=== PATIENT | male | born 1970 | race Caucasian/White ===

== ENCOUNTER 2023-05-06 11:01 | Outpatient (CLI) | payer BC, SELFPAY ==
[2023-05-06 11:16] LABS: Basophils Absolute Auto 0.1 K/mm3 (0.0-0.1); Basophils Percent Auto 0.5 % (0.2-1.2); Eosinophils Absolute Auto 0.2 K/mm3 (0-0.3); Eosinophils Percent Auto 1.7 % (0-4.4); Hematocrit 52.8 % (42.0-52.0); Hemoglobin 18.1 g/dL (14.0-18.0); Immature Granulocyte Absolute 0.03 K/mm3 (0.00-0.031); Immature Granulocyte Percent A 0.3 % (0-0.5); Lymphocytes Absolute Auto 2.14 K/mm3 (0.9-3.2); Lymphocytes Percent Auto 20.3 % (18.3-44.2); Mean Corpuscular HGB Conc 34.3 g/dl (32-36); Mean Corpuscular Hemoglobin 31.1 pg (26-34); Mean Corpuscular Volume 90.7 fl (80-100); Mean Platelet Volume 10.7 fl (7.4-10.4); Monocytes Absolute Auto 0.6 K/mm3 (0.1-0.6); Monocytes Percent Auto 5.2 % (2.6-8.5); Neutrophils Absolute Auto 7.6 K/mm3 (1.3-6.7); Platelet Count Result 196 k/mm3 (150-375); Red Blood Count 5.82 M/mm3 (4.6-6.20); Red Cell Distribution Width 13.2 % (11.5-14.5); White Blood Count 10.5 K/mm3 (4.5-10.0)
[2023-05-06 16:40] LABS: Alanine Aminotransferase 53 U/L (6-50); Albumin Level 4.4 g/dL (3.5-5.1); Alkaline Phosphatase 83 U/L (38-126); Anion Gap 6 mmol/L (8-16); Aspartate Amino Transferase 42 U/L (17-59); Bilirubin,Total 0.9 mg/dL (0.2-1.3); Blood Urea Nitrogen 54 mg/dL (9-20); Calcium 9.4 mg/dL (8.4-10.2); Carbon Dioxide 28 mmol/L (22-30); Chloride 104 mmol/L (98-107); Estimated Glomerular Filt Rate 38; Glucose 115 mg/dL (65-110); Potassium 5.8 mmol/L (3.4-5.0); Sodium 138 mmol/L (137-145)
[2023-05-09 13:28] LABS: Erythropoietin (EPO) 11.1 mIU/mL (2.6-18.5)
== END 2023-05-06 11:02 | disposition home or self-care (01) ==
LOC: ANHLAB 11:06
PROVIDERS: PCP Nurse Practitioner Family; Visit Provider Internal Medicine Hematology & Oncology
DX: D75.1 Secondary polycythemia (principal)
CPT/HCPCS: 36415; 80053; 82668; 85025

== ENCOUNTER 2025-05-02 08:43 | Outpatient (CLI) | payer BC, SELFPAY ==
--- NOTE | ~2025-05-02 | MR_ITS ---
MRI of the right shoulder Technique: Axial proton-density fat-sat images, coronal proton density fat-sat and T2 fat-sat images, and sagittal T1-weighted and T2 fat-sat images were acquired. Clinical History: Pain Findings: There is [id number] AC joint degenerative change with small subacromial spur. Coracoc lavicular, coracoacromial, and coracohumeral ligaments are intact. There is evidence of prior rotator cuff repair surgery with suture anchors at the humeral head. There is extensive recurrent full-thickness tearing of the anterior and mid portions of the supraspinatus tendon. There is interstitial tear of the posterior portion of the supraspinatus tendon. Infraspinatu s tendon appears intact. Subscapularis tendon appears intact. Probable prior biceps tenodesis. There is degenerative attenuation of the superior labrum. Inferior glenohumeral ligament is intact. There is moderate glenohumeral joint effusion with fluid pa ssing through the rotator cuff defect into the subacromial/subdeltoid bursa. No definite muscle atrop hy or edema. No degenerative change of the glenohumeral joint. Impression: Prior rotator cuff repair surgery with extensive recurrent full-thickness tearing of the supraspinatu s tendon, as detailed above. Probable prior biceps tenodesis. [id number] AC joint degenerative change. Reviewed, dictated and finalized at [facility]. Impression: Prior rotator cuff repair surgery with extensive recurrent full-thickness teari ng of the supraspinatus tendon, as detailed above. Probable prior biceps tenodesis. [id number] AC joint degenerative change.
--- OUTSIDE RECORDS SUMMARY | 2025-05-02 08:48 | XMS_ITS | Clinical Summary ---
Author Organization [facility] Address [address] [place] [address] Phone Care Team Providers Care Bias Cutter Name Role Phone Harshal Grissom MD Primary Care Provider [phone] Allergies No known active allergies Medications metFORMIN (GLUCOPHAGE) 500 mg tablet Take 500 mg by mouth 2 times daily with meals. Active empagliflozin (Jardiance) 10 mg tablet Jardiance 10 mg tablet Take 1 tablet every day by oral route for 30 days. Active lisinopriL (PRINIVIL) 20 mg tablet lisinopril 20 mg tablet Take 1 tablet every day by oral route. Active carvediloL (COREG) 12.5 mg tablet Take 1 Tablet by mouth 2 times daily. 2 Active clopidogreL (PLAVIX) 75 mg Tablet clopidogrel 75 mg tablet Take 1 tablet every day by oral route. Active chlorthalidone (HYGROTON) 25 mg tablet TAKE ONE-HALF (1/2) TABLET ONCE DAILY 3 Active allopurinoL (ZYLOPRIM) 100 mg tablet TAKE 2 TABLETS EVERY MORNING 3 Active atorvastatin (LIPITOR) 40 mg tablet Take 40 mg by mouth daily. Active Active Problems No known active problems Family History Medical History Relation Name Comments Diabetes Father Skin Cancer Father Diabetes Mother Heart Disease Mother Relation Name Status Comments Brother Alive Father Alive Mother Son Alive Social History Tobacco Use Types Packs/Day Years Used Date Smoking Tobacco: Never Tobacco Cessation:Counseling Given: Not Answered Alcohol Use Standard Drinks/Week Comments Yes 0 (1 standard drink = 0.6 oz pur e alcohol) social Sex and Gender Information Value Date Recorded Sex Assigned at Not on file Legal Sex Male 8:39 PM CDT Gender Identity Not on file Sexual Orientation Not on file Last Filed Vital Signs Vital Sign Reading Time Taken Comments Blood Pressure 141/78 05/06/2023 10:23 AM CDT Pulse 61 05/06/2023 10:21 AM CDT Temperature 36.4 C (97.6 F) 04/06/2014 8:46 PM CDT Respiratory Rate 10 05/06/2023 10:21 AM CDT Oxygen Saturation 95% 05/06/2023 10:21 AM CDT Inhaled Oxygen Concentration - - Weight 96.6 kg (213 lb) 05/06/2023 10:21 AM CDT Height 170.2 cm (5' 7) 05/06/2023 10:21 AM CDT Body Mass Index 33.36 05/06/2023 10:21 AM CDT Plan of Treatment Health Maintenance Due Date Last Done Comments DIABETES ANNUAL FOOT EXAM 1990 DIABETES ANNUAL RETINAL EXAM 1990 DIABETES HBA1C Q 6 MONTHS 1990 DIABETES MICROALBUMIN ANNUAL SCREEN 1990 LDL CHOLESTEROL ANNUAL 1990 HEPATITIS B VACCINES (1 of 3 - 19+ 3-dose series) 1991 COLORECTAL SCREENING 2017 Colorectal Cancer Screening 2017 FIT-DNA Q 3 years 2017 FIT/FOBT Q 1 year 2017 Flex Sig/CT Colonography Q 5 years 2017 ZOSTER VACCINE (1 of 2) 2022 INFLUENZA VACCINE (#1) 2024 , 10/26/2019, 02/11/2019 DTAP/TDAP/TD VACCINES (4 - T d or Tdap) 12/06/2027 12/06/2017, 04/09/2014, 04/09/2014 Insurance [facility] BLUE ACCESS CHOICE Care Teams Bias Cutter Relationship Specialty Start Date End Date Harshal Grissom MD PCP - General 11/11/15
--- OUTSIDE RECORDS SUMMARY | 2025-05-02 08:48 | XMS_ITS | Patient Health Record ---
Author Organization [facility] Address [address] [place] [address] Support Name Relationship Address Phone Luis Daniel Francis Guarantor Unknown [phone] Reason For Referral No Information Medications Medication SIG (Take, Route, Frequency, Duration) Notes Start Date End Date Status Medrol 4 MG 0 Oral TAKE DIRECTED ON PATIENT INSTRUCTION CARD. START IN AM ON 04/24/2014.-Med Status:Filled Rx, DrugStatus-Y,[place]-Rx By-Zuleyma Khanna 04/23/2014 Active Ibuprofen 800 MG 0 Oral Take 1 tablet t hree times daily as needed for pain.-Med Status:Filled Rx, DrugStatus-N,[place]-Rx By-Zuleyma Khanna 04/23/2014 Active Lisinopril 10 MG 0 Oral -Med Status:Zach led Rx, DrugStatus-N,[place]-Rx By- , 04/23/2014 Active metFORMIN HCl 500 MG 0 Oral -Med Status:Filled Rx, DrugStatus-N,[place]-Rx By- , 04/23/2014 Active Problems Problem Type SNOMED Code ICD Code Onset Dates Problem Status W/U Status Risk Notes Problem Meningococcal infectious disease (disorder) (72886836) Meningococcal () 014 Active confirmed [place] Problem Arthralgia of the upper arm (623099676) Pain in right elbow (M25.521) 017 Active confirmed [place] Problem Bursitis of olecranon of right elbow (disorder) (908134456231721) Other bursitis of elbow, right elbow (M70.31) 014 Active confirmed [place] Problem Adult health examination (399340653) Encounter for general adult medical examination without abnormal findings (Z00.00) 900 Active confirmed [place] Problem Family history of diabetes mellitus (290515880) Family history of diabetes mellitus (Z83.3) 014 Active confirmed [place] Problem History of endocrine disorder (434766655) Personal history of other endocrine, nutritional and metabolic disease (Z86.39) Resolved confirmed [place] Problem History of circulatory system disease (587597122) Personal history of other diseases of the circulatory system (Z86.79) 014 Resolved confirmed [place] Problem History of musculoskeletal disease (508737448) Personal history of other diseases of the musculoskeletal system and connective tissue (Z87.39) 014 Resolved confirmed [place] Problem History of urinary disease (482508896) Personal history of other diseases of urinary system (Z87.448) 014 Resolved confirmed [place] Plan Of Treatment No Information Insurance Providers Payer Name Payer Address Payer Phone Subscriber Number Group Number Insured Name Patient Relationship to Insured Coverage Start Date Coverage End Date [place] [employer] [place] [address] [place] [phone] [id number] Luis Daniel Francis Self - patient is the insured
--- OUTSIDE RECORDS SUMMARY | 2025-05-02 08:48 | XMS_ITS | Data Portability ---
Author Organization [facility] MEDICAL Address [address] [place] [address] Assessment No assessment recorded. Plan of Treatment Reminders Order Date Submit Date Provider Last Modified By Organization Details Last Modified Time Details Appointments None recorded. Lab vitamin B12, serum 2017 018 [facility], [address] [place], [address], 8 10:45:56 microalbum in/creatin ine, mass ratio, urine 2017 018 [facility], [address] [place], [address], 8 10:31:29 CBC w/ auto diff 2017 018 [facility], [address] [place], [address], 8 10:31:29 CMP, serum or plasma 2017 018 [facility], [address] [place], [address], 8 10:31:29 lipid panel, serum 2017 018 [facility], [address] [place], [address], 8 10:31:29 TSH, serum or plasma 2017 018 [employer] [employer] - [facility], [address] [place], [address], 8 10:31:29 HbA1c (hemoglobi n A1c), blood 2017 018 [employer] [facility], [address] [place], [address], 8 10:31:29 Referral sleep study referral 2017 018 [facility] [place], [facility], [address], 8 16:30:28 Procedures None recorded. Surgeries None recorded. Imaging None recorded. Medication Orders lisinopril 20 mg tablet 2017 018 INTERFACE [facility] / [place], [address] [place], [address], 8 13:22:30 pravastati n 20 mg tablet 2017 [facility] [place], [address] [place], [address], 8 10:35:37 gabapentin 300 mg capsule 2017 018 INTERFACE [facility] [place], [address] [place], [address], 8 13:22:31 Patient TargetsNo targets recorded. Patient Instructions Encounter Date Encounter Id Patient Instructions Last Modified By Organization Details Last Modified Time 12/06/2017 [id number] high blood pressure: care instructions aendrizzi Not available 12/06/2017 13:22:28 learning about high blood pressure aendrizzi Not available 12/06/2017 13:22:28 high cholesterol : care instructions aendrizzi Not available 12/06/2017 13:22:28 neuropathic pain : care instructions [email or web address] Not available 12/06/2017 13:22:28 Keep seeing cardio f2poyvtl. myke Not available 12/06/2017 13:20:23 3 month RV. He has been out of his BP medication. Come back for blood (LIPID, CBC, CMP, TSH, A1C, Urine micro). myke Not available 12/06/2017 13:17:48 01/07/[id number] stringer Not available 14:44:01 He has not been taking his BP medication. [email or web address] Not available 01/07/2018 14:43:16 Reason for Referral Referring Physician: Alissa Molina, Family Medicine, Encounter Date: 01/07/2018 Results Created Date Observation Date Name Description Value Unit Range Abnormal Flag Note LastModifiedBy Organization Detail LastModifiedTime 12/19/19 18 12/20/2017 lipid panel , serum cholesterol, total 220 mg/dL <200 high Not Available Patient Communicator [facility] [address] [place], [address], 12/20/2017 09:00:37 12/19/19 18 12/20/2017 lipid panel , serum HDL cholesterol 38 mg/dL >40 low Not Available [facility] YumZing [facility] [address] [place], [address], 12/20/2017 09:00:37 12/19/19 18 12/20/2017 lipid panel , serum triglyceride s 241 mg/dL <150 high Not Available Patient Communicator [facility] [address] [place], [address], 12/20/2017 09:00:37 12/19/19 18 12/20/2017 lipid panel , serum LDL-choleste rol 143 mg/dL _(magno c) high Refer ence range : <100 Carri able range <100 mg/dL for patie nts with CHD or diabe agus and <70 mg/dL for diabe tic patie nts with known heart disea se. LDL-C is now calcu lated using the Anne [facility] kins tre caba n, which is a valid ated novel juany fregoso than the Fried ruben kaylanat ion in the estim ation of LDL-C . Anne rodriguez SS et al. JAJA. 2013; 310(1 9): 2061- 2068 (http ://ed ucati on.AntFarm. com/f aq/FA Q164) Not Available [facility] [address] [address] [place], [address], 12/20/2017 09:00:37 12/19/19 18 12/20/2017 lipid panel , serum chol/HDLC ratio 5.8 (calc ) <5.0 high Not Available [facility] [address] [address] [address], [place], [address], 12/20/2017 09:00:37 12/19/1912/20/2017 lipid panel , serum non HDL cholesterol 182 mg/dL _(magno c) <130 high For patie nts with diabe agus plus 1 major ASCVD risk facto r, treat ing to a non-H DL-C goal of <100 mg/dL (LDL- C of <70 mg/dL ) is consi candace milton optio n. Not Available Patient Communicator [address], [place], [address], 12/20/2017 09:00:37 12/19/1912/20/2017 CMP, serum or plasm a glucose 163 mg/dL 65-99 high Fasti ng refer ence inter andie For someo ne witho ut known diabe agus, a gluco se value >125 mg/dL indic ates that they may have diabe agus and this shoul d be confi rmed with a follo w-up test. Not Available [facility] [address] [address] [address], [place], [address], 12/20/2017 09:00:37 12/19/19 18 12/20/2017 CMP, serum or plasm a urea nitrogen (BUN) 24 mg/dL 7-25 normal Not Available [address], [address], 12/20/2017 09:00:37 12/19/19 18 12/20/2017 CMP, serum or plasm a creatinine 1.14 mg/dL 0.60-1 .35 normal Not Available [address], [address], 12/20/2017 09:00:37 12/19/1912/20/2017 CMP, serum or plasm a eGFR non-afr. georgian 77 mL/mi n/1.7 3m2 > or = 60 normal Not Available [address], [address], 12/20/2017 09:00:37 12/19/19 18 12/20/2017 CMP, serum or plasm a eGFR 90 mL/mi n/1.7 3m2 > or = 60 normal Not Available [address], [address], 12/20/2017 09:00:37 12/19/1912/20/2017 CMP, serum or plasm a BUN/creatini ne ratio NOT APPLIC ABLE (calc ) 6-22 Not Available [address], [address], 12/20/2017 09:00:37 12/19/1912/20/2017 CMP, serum or plasm a sodium 140 mmol/ L 135-14 6 normal Not Available [address], [address], 12/20/2017 09:00:37 12/19/1912/20/2017 CMP, serum or plasm a potassium 4.6 mmol/ L 3.5-5. 3 normal Not Available [facility] [address], [address], 12/20/2017 09:00:37 12/19/1912/20/2017 CMP, serum or plasm a chloride 103 mmol/ L 98-110 normal Not Available [address], [address], 12/20/2017 09:00:37 12/19/1912/20/2017 CMP, serum or plasm a carbon dioxide 27 mmol/ L 20-31 normal Not Available [address], [address], 12/20/2017 09:00:37 12/19/1912/20/2017 CMP, serum or plasm a calcium 9.1 mg/dL 8.6-10 .3 normal Not Available [address], [address], 12/20/2017 09:00:37 12/19/19 18 12/20/2017 CMP, serum or plasm a protein, total 5.9 g/dL 6.1-8. 1 low Not Available [address], [address], 12/20/2017 09:00:37 12/19/19 18 12/20/2017 CMP, serum or plasm a albumin 3.5 g/dL 3.6-5. 1 low Not Available [address], [address], 12/20/2017 09:00:37 12/19/1912/20/2017 CMP, serum or plasm a globulin 2.4 g/dL_ (calc ) 1.9-3. 7 normal Not Available [address], [address], 12/20/2017 09:00:37 12/19/1912/20/2017 CMP, serum or plasm a albumin/glob ulin ratio 1.5 (calc ) 1.0-2. 5 normal Not Available [facility] [address], [address], 12/20/2017 09:00:37 12/19/19 18 12/20/2017 CMP, serum or plasm a bilirubin, total 0.4 mg/dL 0.2-1. 2 normal Not Available [address], [address], 12/20/2017 09:00:37 12/19/19 18 12/20/2017 CMP, serum or plasm a alkaline phosphatase 68 U/L 40-115 normal Not Available [address], [address], 12/20/2017 09:00:37 12/19/19 18 12/20/2017 CMP, serum or plasm a AST 23 U/L 10-40 normal Not Available [address], [address], 12/20/2017 09:00:37 12/19/19 18 12/20/2017 CMP, serum or plasm a ALT 34 U/L 9-46 normal Not Available [address], [address], 12/20/2017 09:00:37 12/19/19 18 12/20/2017 micro album in/cr eatin ine, mass ratio , urine creatinine, random urine 125 mg/dL 20-370 normal Not Available [address], [address], 12/20/2017 15:34:01 12/19/19 18 12/20/2017 micro album in/cr eatin ine, mass ratio , urine microalbumin 261.6 mg/dL see note: normal Refer ence Range : Refer ence Range Not estab lishe d Verif ied by sepideh tena lissa sis. Not Available [address], [address], 12/20/2017 15:34:01 12/19/19 18 12/20/2017 micro album in/cr eatin ine, mass ratio , urine microalbumin /creatinine ratio, random urine 2093 mcg/m g_cre at <30 high The ADA defin es abnor malit ies in album in excre tion as follo ws: Categ ory Resul t (mcg/ mg creat inine ) Inga l <30 Micro album inuri a 30-29 9 Clini magno album inuri a > OR = 300 The ADA recom mends that at least two of three speci mens colle cted withi n a 3-6 month perio d be abnor mal befor e consi manuel g a patie nt to be withi n a diagn ostic categ ory. Not Available [address] [address] [place], [address], 12/20/2017 15:34:01 12/19/19 18 12/20/2017 CBC w/ auto diff white blood cell count 7.4 thous and/u L 3.8-10 .8 normal Not Available [address], [address], 12/20/2017 08:02:49 12/19/19 18 12/20/2017 CBC w/ auto diff red blood cell count 5.61 kelsi on/uL 4.20-5 .80 normal Not Available [address], [address], 12/20/2017 08:02:49 12/19/19 18 12/20/2017 CBC w/ auto diff hemoglobin 16.7 g/dL 13.2-1 7.1 normal Not Available [address], [address], 12/20/2017 08:02:49 12/19/19 18 12/20/2017 CBC w/ auto diff hematocrit 48.7 % 38.5-5 0.0 normal Not Available [address], [address], 12/20/2017 08:02:49 12/19/19 18 12/20/2017 CBC w/ auto diff MCV 86.8 fL 80.0-1 00.0 normal Not Available [address], [address], 12/20/2017 08:02:49 12/19/19 18 12/20/2017 CBC w/ auto diff MCH 29.8 pg 27.0-3 3.0 normal Not Available [address], [address], 12/20/2017 08:02:49 12/19/19 18 12/20/2017 CBC w/ auto diff MCHC 34.3 g/dL 32.0-3 6.0 normal Not Available [address], [address], 12/20/2017 08:02:49 12/19/19 18 12/20/2017 CBC w/ auto diff RDW 12.4 % 11.0-1 5.0 normal Not Available [address], [address], 12/20/2017 08:02:49 12/19/19 18 12/20/2017 CBC w/ auto diff platelet count 192 thous and/u L 140-40 0 normal Not Available [address], [address], 12/20/2017 08:02:49 12/19/19 18 12/20/2017 CBC w/ auto diff MPV 11.7 fL 7.5-12 .5 normal Not Available [address], [address], 12/20/2017 08:02:49 12/19/19 18 12/20/2017 CBC w/ auto diff absolute neutrophils 4854 cells /uL 1500-7 800 normal Not Available [address], [address], 12/20/2017 08:02:49 12/19/19 18 12/20/2017 CBC w/ auto diff absolute lymphocytes 1917 cells /uL 850-39 00 normal Not Available [address] [place], [address], 12/20/2017 08:02:49 12/19/19 18 12/20/2017 CBC w/ auto diff absolute monocytes 377 cells /uL 200-95 0 normal Not Available [address] [address] [place], [address], 12/20/2017 08:02:49 12/19/19 18 12/20/2017 CBC w/ auto diff absolute eosinophils 200 cells /uL 15-500 normal Not Available [address] [address] [place], [address], 12/20/2017 08:02:49 12/19/19 18 12/20/2017 CBC w/ auto diff absolute basophils 52 cells /uL 0-200 normal Not Available [address], [address], 12/20/2017 08:02:49 12/19/19 18 12/20/2017 CBC w/ auto diff neutrophils 65.6 % normal Not Available [address], [address], 12/20/2017 08:02:49 12/19/19 18 12/20/2017 CBC w/ auto diff lymphocytes 25.9 % normal Not Available [address] [place], [address], 12/20/2017 08:02:49 12/19/19 18 12/20/2017 CBC w/ auto diff monocytes 5.1 % normal Not Available [facility] [address] [address] [place], [address], 12/20/2017 08:02:49 12/19/19 18 12/20/2017 CBC w/ auto diff eosinophils 2.7 % normal Not Available [facility] [address] [address] [place], [address], 12/20/2017 08:02:49 12/19/19 18 12/20/2017 CBC w/ auto diff basophils 0.7 % normal Not Available [facility] [address] [address] [place], [address], 12/20/2017 08:02:49 12/19/19 18 12/20/2017 TSH, serum or plasm a TSH w/reflex to FT4 1.38 mIU/L 0.40-4 .50 normal Not Available [facility] [address], [address], 12/20/2017 09:54:20 12/19/19 18 12/20/2017 HbA1c (hemo globi n A1c), blood hemoglobin A1C 7.5 %_of_ total _HGB <5.7 high For someo ne witho ut known diabe agus, a hemog lobin A1c value of 6.5% or great er indic ates that they may have diabe agus and this shoul d be confi rmed with a follo w-up test. For someo ne with known diabe agus, a value <7% indic ates that their diabe agus is well contr olled and a value great er than or equal to 7% indic ates subop timal contr ol. A1c targe ts shoul d be indiv idual ized based on durat ion of diabe agus, age, comor bid condi tions , and other consi derat ions. Curre ntly, no conse nsus exist s byron vale use of hemog lobin A1c for diagn osis of diabe agus for child tuan. Not Available [facility] [address], [place], [address], 12/20/2017 09:54:21 01/07/20 18 01/08/2018 vitam in B12, serum vitamin B12 1530 pg/mL 200-11 00 high Not Available [facility] [address], [address], 01/08/2018 10:45:56 Result Notes None recorded. Problems No Known Problems Procedures Surgical History Date Name Laterality Status Provider Name and Address Organization Details Recorded Time 06/25/20 14 Hernia repair w/mesh completed Layne Ablarran LPN [facility] 12/06/2017 12:46:05 06/25/20 14 Gastrointestinal Surgery completed Layne WillZULLY charles [facility] 12/06/2017 12:46:26 11/25/19 07 Gastric bypass for obesity completed Layne WillZULLY charles [facility] 12/06/2017 12:45:51 Imaging Results None recorded. Procedure Notes None recorded. Medical Equipment None Reported. Allergies No known drug allergies Medications Name Sig Start Date Stop Date Status Note LastModified by Organization Details LastModified Time pravastat in 40 mg tablet Take 1 tablet every day by oral route for 30 days. 2017 active Not Available Not Available Not Avai lable lisinopri l 20 mg tablet Take 1 tablet every day by oral route. 2017 active Not Available Not Available Not Avai lable clopidogr el 75 mg tablet Take 1 tablet every day by oral route. active Jacobo Not Available Not Available No t Available aspirin 81 mg tablet,de layed release Take 1 tablet every day by oral route. active Not Available Not Available No t Available carvedilo l 3.125 mg tablet Take 1 tablet twice a day by oral route. active Jacobo Not Available Not Available No t Available gabapenti n 300 mg capsule Take 1 capsule every day by oral route for 30 days. 2017 active Not Available Not Available Not Avai lable monteluka st 10 mg tablet active Not Available Not Available Not Available pravastat in 20 mg tablet Take 1 tablet every day by oral route. 12/20 completed Not Available Not Available Not Available Ventolin HFA 90 mcg/actua tion aerosol inhaler active Not Available Not Available Not Available multivita min 6 tablets daily active Not Available Not Available No t Available ProAir HFA PRN active Not Available Not Available Not Available Victoza 0.6 mg/0.1 mL (18 mg/3 mL) subcutane ous pen injector Inject 0.6 mg every day by subcutan eous route. active Not Available Not Available No t Available Jardiance 10 mg tablet Take 1 tablet every day by oral route for 30 days. 2017 active Not Available Not Available Not Avai lable Vitals Date Recorded Body height Body mass index (BMI) Body weight Heart rate Systolic blood pressure Diastolic blood pressure Provider Name and Address Organization Details Last Updated DateTime 8 172.72 cm 39.4 kg/m2 042124. 42 g 80 /min 164 mm[Hg] 90 mm[Hg] Layne Albarran LPN [facility] 8 12:39:50 Date Recorded Body height Body mass index (BMI) Body weight Heart rate Oxygen saturation Oxygen saturation in Arterial blood by Pulse oximetry Systolic blood pressure Diastolic blood pressure Provider Name and Address Organization Details Last Updated DateTime 8 172.72 cm 38.5 kg/m2 762223. 87 g 81 /min 95 % 95 % 160 mm[Hg] 110 mm[Hg] Carol Casillas [facility] 14:25:27 Social History Question Answer Notes LastModified by [employer] Details LastModified Time Tobacco Smoking Status Never Smoker Layne Albarran LPN [facility] 12/06/2017 12:45:07 How Much Tobacco Do You Chew? None Information not available 12/06/2017 Which Illicit Or Recreational Drugs Have You Used? N/a Information not available 12/06/2017 Do You Reside In Or Have You Traveled To An Area Where Ebola Virus Transmission Is Active? No Information not available 12/06/2017 Are There Any Guns Present In Your Home? Yes Information not available 12/06/2017 Hard Of Hearing Or Deaf In One Or Both Ears? No Information not available 12/06/2017 Legally Blind In One Or Both Eyes? No Information no t available 12/06/2017 Live Alone Or With Others? With Others Information not available 12/06/2017 What Was The Date Of Your Most Recent Tobacco Screening? 01/07/2018 Information not available 06/17/2019 How Many Children Do You Have? 1 Information not available 12/06/2017 Smoke Alarm In Home Yes Information not available 12/06/2017 Sex: Male Functional Status Question Answer Note LastModified by [employer] Details LastModified Time What is your level of alcohol consumption? Occasional Information not available 12/06/2017 Are you currently employed? No Information not available 12/06/2017 Mental Status None recorded. Family History Relationship Description Onset Age of this Age Resolved Age Notes LastModified by Organization Details LastModified Time Mother Diabetes mellitus srademaker Not available 12/06 12:43:50 Mother Chronic obstructive pulmonary disease srademaker Not available 12/06 12:44:01 Mother Congestive heart failure srademaker Not available 12/06 12:44:37 Mother Hypertensive disorder srademaker Not available 12/06 12:44:48 Father Diabetes mellitus srademaker Not available 12/06 12:43:51 Father Malignant melanoma srademaker Not available 12/06 12:44:22 Brother Diabetes mellitus srademaker Not available 12/06 12:43:51 Medical History Condition Response Heart Problems Y Coronary Artery Disease N Other N Hyperthyroidism N Kidney or Bladder Problems N GI Problems Y Depression N COPD Y Hypothyroidism N Defects or Inherited Disease N ILLICIT DRUG USE N Anemia N Headaches/Migraines N Mental Illness N Diabetes Y Muscle, Joint, or Bone Problems Y Obesity Y Arthritis Y Infertility N Tuberculosis N AIDS/HIV N Congestive Heart Failure (CHF) N Cancer N Abuse/Domestic Violence N Asthma N Allergies N Reflux/GERD N High Cholesterol N Hepatitis N Fibromyalgia N Hypertension Y Chicken Pox Y Immunizations Vaccine Type Date Status Note Provider Nam e and Address Organization Details Recorded Time Tdap 8 completed Not Available [facility] 12/12/2019 02:27:49 pneumococcal polysaccharide PPV23 8 completed Not Available [facility] 12/12/2019 02:28:06 Past Encounters Encounter ID Performer Location Encounter Start Date Encounter Closed Date Diagnosis/Indication Diagnosis SNOMED-CT Code Diagnosis ICD10 Code Diagnosis Note [id number] OLIVER Page [facility] [address] [place] [id number] 12/06/2017 12:20:14 12/06/2017 14:12:57 Essential hypertension 43962272 I10 Hyperlipidemia 64774729 E78.2 Benign ess ential hypertension 2393539 I10 Neuropathy 897021663 G61 .89 Active or passive immunization 007423592 Z23 [id number] OLIVER Page [facility] [address] [place] [id number] 12/19/2017 09:31:11 12/21/2017 03:46:14 Adult health examination 857437629 Z00.00 Type 2 carmen betes mellitus 42944719 E11.9 [id number] OLIVER Page [facility] [address] [place] [address] 01/07/2018 13:59:16 01/07/2018 15:34:02 Active or passive immunization 183449771 Z23 Daytime somnolence 32957 99198 00 R40.0 Fatigue 78122820 R53.83 Health Concerns Section Related Observation LastModified by Organization Detai ls LastModified Time None Recorded Concern Status LastModified by Organization Details LastModified Time None Recorded Advance Directives Directive None Recorded Payers Encounter Date Sequence Insurance Name Policy Number Policy Martinez Covered Member ID Martinez Member ID Guarantor Name 12/06/2017 1 [place] [employer] Luis Daniel Tito [id number] Luis Daniel Brock Tito 12/19/2017 1 [place] [employer] Luis Daniel Tito [id number] Luis Daniel Brock Tito 01/07/2018 1 [place] [employer] Luis Daniel Tito [id number] Luis Daniel Brock Tito Notes Date Note Type Note Provider Name and Address Organization Details Recorded Time 8 text/html HypertensionReported bypatient.Onset/Timing:be tter Associated Symptoms:no shortness of breath; no fatigue; no palpitations; no decline in exercise capacity; no snoring OLIVER Page [address] [place] [address], [phone], [facility] [employer] 12/06/2017 13:28:24 8 text/html HypertensionReported bypatient.Onset/Timing:be tter Associated Symptoms:no shortness of breath; no palpitations; no decline in exercise capacity; no snoring;fatigue OLIVER Page [address] [place] [address], [phone], [facility] [employer] 01/07/2018 14:45:27
--- OUTSIDE RECORDS SUMMARY | 2025-05-02 08:48 | XMS_ITS | Clinical Summary ---
Author Organization [facility] [employer] [facility] , [facility] Address [address] [place] [address] Phone Care Team Providers Care Baker Apprentice Name Role Phone Pam Perez APRN Primary Care Provider [phone] Medications carvedilol (COREG) 12.5 MG tablet TAKE 1 TABLET TWICE A DAY 180 tablet 3 2 Active hydrOXYzine (ATARAX) 25 MG tablet Take 1 tablet (25 mg total) by mouth every night 90 tablet 1 4 Active sildenafil (VIAGRA) 50 MG tablet Take 1 tablet (50 mg total) by mouth 1 (one) time each day if needed for erectile dysfunction 30 tablet 1 5 Active Dulaglutide (Trulicity) 3 MG/0.5ML solution auto-injector Inject 3 mg under the skin per week 12 mL 1 5 Active chlorthalidone 25 MG tablet TAKE ONE-HALF (1/2) TABLET (12.5 MG) DAILY 45 tablet 3 5 Active allopurinol (ZYLOPRIM) 100 MG tablet TAKE 2 TABLETS EVERY MORNING 180 tablet 3 5 Active Encounters Date Type Department Care Team Description 02/15/2025 Refill [employer] [facility], [place], [address] [address] Shahid Goff DO from Last 3 Months Social History Tobacco Use Types Packs/Day Years Used Date Smoking Tobacco: Never Alcohol Use Standard Drinks/Week Comments Yes 0 (1 standard drink = 0.6 oz pure alcohol) Alcoholic Drinks/day: Occasional social drink Sex and Gender Information Value Date Recorded Sex Assigned at Not on file Legal Sex Male 2:50 PM EDT Gender Identity Not on file Sexual Orientation Not on file Last Filed Vital Signs Vital Sign Reading Time Taken Comments Blood Pressure 118/80 01/14/2025 4:17 PM [employer]CHANICAL ENGINEERING INTERN Pulse 88 12/03/2024 1:34 PM MECHANICAL ENGINEERING INTERN Temperature 36.1 C (97 F) 01/14/2025 4:17 PM MECHANICAL ENGINEERING INTERN Respiratory Rate 18 01/14/2025 4:17 PM MECHANICAL ENGINEERING INTERN Oxygen Saturation 97% 01/14/2025 4:17 PM MECHANICAL ENGINEERING INTERN Inhaled Oxygen Concentration - - Weight 104 kg (229 lb) 01/14/2025 4:17 PM MECHANICAL ENGINEERING INTERN Height 170.2 cm (5' 7) 06/19/2022 12:20 PM CDT Body Mass Index 35.87 06/19/2022 12:20 PM CDT Plan of Treatment Health Maintenance Due Date Last Done Comments Hepatitis B Vaccine (1 of 3 - 19+ 3-dose series) 1991 Pneumococcal Vaccine: 50+ Ye ars (2 of 2 - PCV) 01/07/2019 01/07/2018 Diabetes: Hemoglobin A1C 04/21/2021 Diabetes: Ophthalmology Exam 04/21/2021 Diabetes: Pedal Pulse Checked 04/21/2021 Diabetes: Sensory Foot Exam 04/21/2021 Diabetes: Visual Foot Exam 04/21/2021 Colorectal Cancer Screening: Annual FOBT 2021 Colorectal Cancer Screening: Colonoscopy 2021 Colorectal Cancer Screening: Sigmoidoscopy 2021 Influenza Vaccine (Season Ended) 2025 09/03/2022, 10/26/2019, 02/11/2019 Pneumococcal Vaccine: Peds ( 0 to 5 Years) and At-Risk Patients (6 to 49 Years) Discontinued 01/07/2018 Insurance [facility] [place] Care Teams Baker Apprentice Relationship Specialty Start Date End Date Pam Perez APRN Mike [facility] Internal Med [facility] [address] [facility] [place], [facility] [place] [address] PCP - General 12/03/24
--- OUTSIDE RECORDS SUMMARY | 2025-05-02 08:48 | XMS_ITS | Encounter Summary ---
Author Organization [facility] [employer] [facility] , [facility] Address [address] [place] [phone] Phone Care Team Providers Care Public Address Technician Name Role Phone Pam Perez APRN Primary Care Provider [phone] Reason for Visit * Reason Comments Med Refill Encounter Details Date Type Department Care Team (Late st Contact Info) Description 06/20/2021 Refill [place] [employer] [facility], [facility] [address] [place] [phone] [place] [address] [place] [phone] Social History Tobacco Use Types Packs/Day Years Used Date Smoking Tobacco: Never Alcohol Use Standard Drinks/Week Comments Yes 0 (1 standard drink = 0.6 oz pure alcohol) Alcoholic Drinks/day: Occasional social drink Sex and Gender Information Value Date Recorded Sex Assigned at Not on file Legal Sex Male 2:50 PM EDT Gender Identity Not on file Sexual Orientation Not on file documented as of this encounter Plan of Treatment Not on file documented as of this encounter Visit Diagnoses Not on filedocumented in this encounter Care Teams Public Address Technician Relationship Specialty Start Date End Date Pam Perez APRN [facility] Internal Med [facility] [address] [facility] [place] [address] PCP - General 12/03/24 documented as of this encounter
--- OUTSIDE RECORDS SUMMARY | 2025-05-02 08:48 | XMS_ITS | Continuity of Care Document ---
Author Organization [facility] Address [address] [employer] [facility] [place] [address] Phone Care Team Providers Care Psych Np Name Role Phone Gustavo Ren MD Unavailable Unavailable Allergies, Adverse Reactions, Alerts Substance Reaction Status Criticality No Known Allergies Active No Inform ation Medications Medication Instructions Dosage Effective Dates (start - stop) Status Comments Xanax 1 mg tablet take 1 tablet (1MG) by oral route every 4 - 6 hours 1 MG - Active avoid driving or operate machines, PRN for anxiety Lipitor 20 mg tablet take 1 Tablet (20MG) by oral route every day 20 MG - Active Amaryl 2 mg tablet take 1 tablet (2MG) by oral route every day - Active betamethasone dipropionate 0.05 % Topical Cream apply by topical route every day a thin layer to the affected area(s) 0.00 - Active metformin 500 mg tablet take 1 tablet (500MG) by oral route 2 times every day with morning and evening meals 500 MG - Active Procedures Procedure Date OFFICE/OUTPATIENT VISIT, EST OFFICE/OUTPATIENT VISIT, EST OFFICE/OUTPATIENT VISIT, EST Advance Directives Directive Yes / No Effective Date File Name No Information Encounters Encounter Description Practice Location Reason(s) For Visit Diagnoses Date Provider Providers Copied on Encounter [facility], [place], [address] [place] [place], [id number], tel:[phone] [facility] [place] No Information 3 Mikal Chen. [address] [place], [id number] , [place]. tel:[phone] OFFICE/OUTPA TIENT VISIT, [facility], [address] [place], [place], [id number], [place] tel:[phone] [facility] [place] DM (chief complaint) HTN (chief complaint) proteinuri a (chief complaint) Dietary surveillance and counselingDiabetes Mellitus, Adult Onset, UncontrolledOther and unspecified hyperlipidemiaHyper tension, UnspecifiedProteinu kayley [address], [place], [place], [id number] , [place]. [phone] Referring Provider: Gustavo Ren, Let[address], [place], [place], [id number]. tel:[phone] OFFICE/OUTPA TIENT VISIT, [facility], [address], [place], [place], [id number], [place] tel:[phone] [facility] [place] HTN (chief complaint) posion IV (chief complaint) Dietary surveillance and counselingHypertens ion, UnspecifiedDiabetes Mellitus, Adult Onset, UncontrolledContact dermatitis and other eczema due to plants (except food) 2 Mik[address], [place], [place], [id number] , [place]. [phone] Referring Provider: Letty Coulter [address], [place], [place], [id number]. tel:[phone] OFFICE/OUTPA TIENT VISIT, [facility], [address], [place], [place], [id number], [place] tel:[phone] [facility] [place] DM (chief complaint) HTN (chief complaint) anxiety (chief complaint) Dietary surveillance and counselingHypertens ion, UnspecifiedOther and unspecified hyperlipidemiaDiabe agus Mellitus, Adult Onset, Uncontrolled 0- 2 Mik[address] Chen. [address], [place], [place], [id number] , [place]. [phone] Referring Provider: Letty [address], [place], [place], [id number]. tel:[phone] Family History Family Member Type Diagnosis Age At Onset Brother Problem (finding) Diabetes mellitus Mother Problem (finding) Diabetes mellitus Father Problem (finding) Diabetes mellitus Payers Payer name Insurance type Covered green party ID Authoriza tion(s) No Information Social History Type Description Quantity Date Captured Comments Sex Male Smoking Status No Information Chief Complaint And Reason For Visit No Information Plan Of Treatment Date Type Action Status Goal Tobacco cessation counseling completed History Of Present Illness Encounter Date Complaint History Of Prese nt Illness No Information Instructions Date Instruction Additional Infor mation Decrease caloric intake Related to Dietary surveillance counseling Dietary counseling Related to Di etary surveillance counseling Dietary counseling Related to Di etary surveillance counseling Decrease caloric intake Related to Dietary surveillance counseling Decrease caloric intake Related to Dietary surveillance counseling Dietary counseling Related to Di etary surveillance counseling Assessments Type Assessment Date No Information
--- OUTSIDE RECORDS SUMMARY | 2025-05-02 08:48 | XMS_ITS | CONTINUITY OF CARE DOCUMENT ---
Author Name marco lara Address Unknown Organization [facility] Address [address] [place] [address] Phone [phone] Care Team Providers Care Lining Maker Name Role Phone Wade RESTREPO, Bhavesh Unavailable KACIE BOYER Unavailable [phone] Sandhya HOLLANDPSigifredo Unavailable PROBLEMS Condition Status Date Provider Notes Diabetes mellitus type II active Bhavesh lamb MD HTN essential--echo ef nl, 07/2024 active R christina Luzmedzai Hyperlipidemia active Bhavesh Olvera MD COPD active Bhavesh Olvera MD Depression active Bhavesh Olvera MD CAD - first diagonal 2.25x18 mm Xience - 2016 active Bhavesh Olvera MD Obesity active Bhavesh Olvera MD ENCOUNTERS Date Type Provider Location Encounter Diagnosis - In-person encounter Office Visit Bhavesh Olvera MD [facility] HTN essential--echo ef nl, 07/2024 - In-person encounter Office Visit Bhavesh Olvera MD [facility] - In-person encounter Office Visit Bhavesh Olvera MD [facility] - In-person encounter Office Visit Bhavesh Olvera MD [facility] - In-person encounter Office Visit Bhavesh Olvera MD [facility] - In-person encounter Office Visit Bhavesh Olvera MD [facility] Diabetes mellitus type IIHTN essential--echo ef nl, 07/2024Hyperlipide miaCOPDDepressionC AD - first diagonal 2.59p31cs Xience - 2016Obesity VITAL SIGNS Date Observation Value Provider Body Mass Index (Ratio) 33.75 kg/m2 Alfred Olvera MD blood pressure, diastolic 89 mm[Hg] Meron Tinajeros blood pressure, systolic 135 mm[Hg] Ling Tinajeros blood pressure, cuff size regular Meron Moralez pulse rate 68 /min Sameera alexandra oxygen saturation, oximetry 98 % Sameera Moralez weight E&M 222 [lb_av] Sameera alexandra height E&M 68 [in_i] Toveyyamel alexandra Body Mass Index (Ratio) 33.30 kg/m2 Alfred Olvera MD weight E&M 219 [lb_av] Maite Yanez blood pressure, diastolic 105 mm[Hg] Radha lockwood Yanez blood pressure, systolic 127 mm[Hg] Lisa ascencio Yanez oxygen saturation, oximetry 96 % [facility] 60 /min [facility] respiratory rate E&M 12 /min [facility] height E&M 68 [in_i] [facility] blood pressure, cuff size regular [facility] Body Mass Index (Ratio) 34.82 kg/m2 Alfred Olvera MD blood pressure, diastolic 95 mm[Hg] St zen[facility] Tinoco blood pressure, systolic 153 mm[Hg] Trip Tinoco oxygen saturation, oximetry 95 % Clemencia Tinoco respiratory rate E&M 18 /min Clemencia dunns pulse rate 67 /min Clemencia Tinoco weight E&M 229 [lb_av] Clemencia Tinoco height E&M 68 [in_i] Clemencia Tinoco Body Mass Index (Ratio) 36.03 kg/m2 Alfred Olvera MD blood pressure, diastolic 92 mm[Hg] Ri sharath Coultererson blood pressure, systolic 151 mm[Hg] Krishna karol Villagomez blood pressure, cuff size large Ri sharath Villagomez respiratory rate E&M 16 /min Nish Villagomez oxygen saturation, oximetry 97 % Darby Villagomez pulse rate 58 /min Darby benjamin weight E&M 237 [lb_av] Darby benjamin height E&M 68 [in_i] Darby benjamin Body Mass Index (Ratio) 38.16 kg/m2 Alfred Olvera MD oxygen saturation, oximetry 97 % [facility] respiratory rate E&M 18 /min Chastit y Daly pulse rate 70 /min Chastity Daly weight E&M 251 [lb_av] Chastity Daly blood pressure, diastolic 98 mm[Hg] Ch astity Daly blood pressure, systolic 164 mm[Hg] Joanne stity Daly height E&M 68 [in_i] Chastity Daly Body Mass Index (Ratio) 39.53 kg/m2 Alfred Olvera MD blood pressure, diastolic 90 mm[Hg] Er clinton Bales blood pressure, systolic 140 mm[Hg] Angie Bales oxygen saturation, oximetry 96 % Kacie Bales pulse rate 65 /min Kacie Swann weight E&M 260 [lb_av] Kacie Swann height E&M 68 [in_i] Kacie Swann blood pressure, resting Yes Dalton Bales ALLERGIES No Known Drug Allergies HISTORY OF MEDICATION USE Medication Status Instructions Dates Provider Indications Com ments carvedilol 25 mg tablet active TAKE 1 TABLET BY MOUTH TWICE A DAY Jasvir Hernandez atorvastatin 40 mg tablet active 1 tablet once a day 4 Bhavesh Olvera MD LAMISIL 250 MG ORAL TABLET completed 1 tablet once a day 4 - 5 Jasvir Hernandez naltrexone 50 mg tablet completed 0.5 tablet once a day 0 - 5 Jasvir Hernandez bupropion HCl 100 mg tablet active once a day 0 Jasvir Hernandez CONTRAVE 8-90 MG ORAL TABLET EXTENDED RELEASE 12 HOUR completed take 1 tablet daily for 1 week, then take 2 tablets daily after 1 week 0 - 0 Katya Arshad RN Trulicity 0.75 mg/0.5 mL pen injector active Inject 1.5 mg subcutaneously once a week 0 Jasvir Hernandez Jardiance 25 mg tablet active 1 tablet by mouth once a day 0 Jasvir Hernandez ProAir HFA 90 mcg/actuation HFA aerosol inhaler active 2 puff every four to six hours 0 Jasvir Hernandez PRAVASTATIN SODIUM 20 MG ORAL TABLET completed ONE TAB. DAILY 0 - 4 Bhavesh Olvera MD gabapentin 300 mg capsule completed 1 capsule twice a day 0 - 8 Jasvir Hernandez ADVAIR DISKUS 250-50 MCG/DOSE INHALATION AEROSOL POWDER BREATH ACTIVATED active 1 puff twice a day 0 Jasvir Hernandez Coreg 3.125 mg tablet completed 1 tablet twice a day 0 - 7 Jasvir Hernandez Plavix 75 mg tablet active 1 tablet once a day 0 Jasvir Hernandez lisinopril 40 mg tablet active 1 tablet once a day 0 Jasvir Hernandez clonidine HCl 0.1 mg tablet completed 1 tablet twice a day 0 - 7 Jasvir Hernandez SOCIAL HISTORY Date Observation Value Provider smoking status Never smoker Jasvir Hernandez smoking status Never smoker Jasvir David social history E&M S moking History: Fernando szymanski has never smoked. Bhavesh Olvera MD smoking status Never smoker Clemencia Earnest social history reviewed E&M revi ewed - no changes required Jasvir Hernandez social history E&M S moking History: Fernando szymanski has never smoked. Jasvir Hernandez smoking status Never smoker Darby vigil social history reviewed E&M revi ewed - no changes required Bhavesh Olvera MD social history reviewed E&M revi ewed - no changes required Bhavesh Olvera MD social history E&M S moking History: Fernando szymanski has never smoked. Bhavesh Olvera MD smoking status Never smoker Claribel hughes number of grandchildren Bhavesh Olvera MD T polo Olvera MD social history E&M S moking History: Fernando szymanski has never smoked. Bhavesh Olvera MD social history reviewed E&M revi ewed - no changes required Bhavesh Olvera MD smoking status Never smoker Kacie Mccarthy FUNCTIONAL STATUS Date Observation Value Provider HRA, CV Assess/Plan, Angina (inactive) Management Plan continue current therapy Jasvir Hernandez HRA, CV Assess/Plan, Angina (inactive) Management Plan continue current therapy Jasvir Hernandez HRA, CV Assess/Plan, Angina (inactive) Management Plan continue current therapy Jasvir Hernandez HRA, CV Assess/Plan, Angina (inactive) Management Plan continue current therapy Jasvir Hernandez FAMILY HISTORY Family Member Condition Mother Family History of Di abetes: INSURANCE PROVIDERS Payer name Policy type / Coverage type Traver red constitution party ID [facility] [id number] 1 ADVANCE DIRECTIVES Name Date DISCUSSED - NO DECISION MADE TREATMENT PLAN Date Name Performer [id number],S, Jasvir Ahmedza i [id number],S, Jasvir Ahmedza i [id number],S, Jasvir Ahmedza i [id number],S, Jasvir Ahmedza i [id number],S, Jasvir Ahmedza i [id number],S, Jasvir Ahmedza i [id number],S, Jasvir Ahmedza i [id number],S, Jasvir Ahmedza i [id number],S, Jasvir Ahmedza i [id number],S, Jasvir Ahmedza i [id number],S, Jasvir Ahmedza i Cardiology Bhavesh Olvera MD Cardiology: H is updated medication list for this problem includes: Atorvastatin 40 Mg Tablet (Atorvastatin) ..... 1 tablet once a day Bhavesh Olvera MD Cardiology: H is updated medication list for this problem includes: Lisinopril 40 Mg Tablet (Lisinopril) ..... 1 tablet once a day Trulicity 0.75 Mg/0.5 Ml Pen Injector (Dulaglutide) ..... Inject 1.5 mg subcutaneously once a week Jardiance 25 Mg Tablet (Empagliflozin) ..... 1 tablet by mouth once a day Bhavesh Olvera MD Cardiology: B P today: 135/89 P rior BP: 127/105 (09/21/2024) His updated medication list for this problem includes: Carvedilol 25 Mg Tablet (Carvedilol) ..... Take 1 tablet by mouth twice a day Lisinopril 40 Mg Tablet (Lisinopril) ..... 1 tablet once a day Bhavesh Olvera MD Cardiology Bhavesh Olvera MD Cardiology:This visi t has been a part of the consistent, comprehensive, and ongoing management of the chronic medical condition(s) listed above for the patient. Bhavesh Olvera MD Cardiology:This visi t has been a part of the consistent, comprehensive, and ongoing management of the chronic medical condition(s) listed above for the patient. Bhavesh Olvera MD Cardiology Jasvir Hernandez Cardiology: B P today: 127/105 P rior BP: 153/95 (12/11/2022) His updated medication list for this problem includes: Carvedilol 25 Mg Tablet (Carvedilol) ..... Take 1 tablet by mouth twice a day Lisinopril 40 Mg Tablet (Lisinopril) ..... 1 tablet once a day Jasvir Hernandez Cardiology Jasvir Hernandez Cardiology: H is updated medication list for this problem includes: Lisinopril 40 Mg Tablet (Lisinopril) ..... 1 tablet once a day Trulicity 0.75 Mg/0.5 Ml Pen Injector (Dulaglutide) ..... Inject 1.5 mg subcutaneously once a week Jardiance 25 Mg Tablet (Empagliflozin) ..... 1 tablet by mouth once a day Jasvir Hernandez Cardiology Jasvir Luzmedzai Cardiology Jasvir Luzmedzai Cardiology Jasvir Luzmedzai Cardiology Jasvir Luzmedzai Cardiology Jasvir Luzmedzai Cardiology Jasvir Luzmedzai Cardiology Jasvir Luzmedzai Cardiology Jasvir Luzmedzai Cardiology Jasvir Luzmedzamario Cardiology Jasvir Ahmedzai Cardiology Jasvir Ahmedzai Cardiology Jasvir Ahmedzai Tele[facility] [place] Cardiology Bhavesh Olvera MD Cardiology Bhavesh Olvera MD Cardiology Bhavesh Olvera MD Cardiology Bhavesh Olvera MD Cardiology Bhavesh Olvera MD Cardiology Bhavesh Olvera MD Cardiology Bhavesh Olvera MD Cardiology Bhavesh Olvera MD Cardiology Bhavesh Olvera MD Cardiology Bhavesh Olvera MD Cardiology Bhavesh Olvera MD Date Name Stress Regadenoson CBC (H/H, RBC, INDIC ES, WBC, PLT) HEMOGLOBIN A1c THYROID PANEL WITH T SH, 3RD GENERATION LIPID PANEL COMPREHENSIVE METABO LIC PANEL, W/EGFR HISTORY OF PROCEDURES Procedure Date Procedure Name Provider Procedure Notes S tatus Complex e/m visit add on Bhavesh Olvera MD completed Complex e/m visit add on Bhavesh Olvera MD completed EKG Bhavesh Olvera MD completed Regadenoson, 4 units Bhavesh Olvera MD completed Cardiolite, 2 units Bhavesh Olvera MD completed SPECT Images Bhavesh Olvera MD complet ed Stress EKG Bhavesh Olvera MD completed EKG Bhavesh Olvera MD completed
--- OUTSIDE RECORDS SUMMARY | 2025-05-02 08:48 | XMS_ITS | Clinical Summary ---
Author Organization [facility] Address [address] [place] [address] Care Team Providers Care Turkey Farmer Name Role Phone Pcp, No Primary Care Provider Unavailabl e Allergies No known active allergies Medications carvediloL (COREG) 12.5 mg tablet Take 1 tablet (12.5 mg total) by mouth 2 (two) times a day 02/01/2025 Active clopidogreL (PLAVIX) 75 mg tablet Take 1 tablet (75 mg total) by mouth daily 02/01/2025 Active atorvastatin (LIPITOR) 40 mg tablet Take 1 tablet (40 mg total) by mouth daily 02/01/2025 Active lisinopriL (PRINIVIL,ZESTRI L) 40 mg tablet Take 1 tablet (40 mg total) by mouth daily 12/17/2024 Active chlorthalidone (HYGROTEN) 25 mg tablet Take 1 tablet (25 mg total) by mouth daily 02/01/2025 Active empagliflozin (Jardiance) 25 mg tablet tablet Take 1 tablet (25 mg total) by mouth daily Active allopurinoL 200 mg tablet Take 200 mg by mouth daily Active dapagliflozin propanediol (Farxiga) 5 mg tablet Take 1 tablet (5 mg total) by mouth daily Active coQ10, ubiquinol, 200 mg capsule Take by mouth Active multivitamin-min -iron-FA-vit K 45 mg iron- 800 mcg-120 mcg capsule Take by mouth Active cyanocobalamin, vitamin B-12, 2,500 mcg tablet,chewable Take by mouth Active Vitamin D3 125 mcg (5,000 unit) tablet Take by mouth Active Fish OiL 1,200 (144-216) mg capsule Take by mouth Active Active Problems No known active problems Encounters Date Type Department Care Team Description 02/17/2025 2:05 PM CDT Office Visit [facility] [address] [place] [address] [phone] Dakota Ragsdale NP Poison jose raul dermatitis (Primary Dx) from Last 3 Months Social History Tobacco Use Types Packs/Day Years Used Date Smoking Tobacco: Never Assessed Sex and Gender Information Value Date Recorded Sex Assigned at Not on file Legal Sex Male 2:00 PM CDT Gender Identity Not on file Sexual Orientation Not on file Last Filed Vital Signs Vital Sign Reading Time Taken Comments Blood Pressure 126/68 02/17/2025 2:18 PM CDT Pulse 68 02/17/2025 2:18 PM CDT Temperature 36.8 C (98.2 F) 02/17/2025 2:18 PM CDT Respiratory Rate 18 02/17/2025 2:18 PM CDT Oxygen Saturation 97% 02/17/2025 2:18 PM CDT Inhaled Oxygen Concentration - - Weight 99.8 kg (220 lb) 02/17/2025 2:18 PM CDT Height 172.7 cm (5' 8) 02/17/2025 2:18 PM CDT Body Mass Index 33.45 02/17/2025 2:18 PM CDT Plan of Treatment Health Maintenance Due Date Last Done Comments CT Colonography 1972 Colonoscopy 1972 Colorectal Cancer Screening 1972 FIT-DNA 1972 FIT 1972 FOBT 1972 Prostate Cancer Screening PSA 1972 Sigmoidoscopy 1972 MMR Vaccines (1 of 1 - Standard series) 1973 Varicella Vaccines (1 of 2 - 13+ 2-dose series) 1985 Hepatitis B Vaccines (1 of 3 - 19+ 3-dose series) 1991 AMB Pneumococcal 50+ yrs (2 of 2 - PCV) 2022 01/07/2018 Zoster Series Vaccines (1 of 2) 2022 COVID-19 Vaccine ( - 2023-2 5 season) 2024 Influenza Vaccine (Season Ended) 2025 09/03/2022, 10/26/2019, 02/11/2019 DTaP,Tdap,and Td Vaccines (4 - Td or Tdap) 12/06/2027 12/06/2017, 04/09/2014, 04/09/2014 RSV Vaccines and 60 Years or Older (1 - 1-dose 75+ series) 2047 AMB Pneumococcal 0-49 yrs Discontinued 01/07/2018 HIB Vaccines Aged Out No longer eligi ble based on patient's age to complete this topic HPV Vaccines Aged Out No longer eligi ble based on patient's age to complete this topic Hepatitis A Vaccines Aged Out No long er eligible based on patient's age to complete this topic IPV Vaccines Aged Out No longer eligi ble based on patient's age to complete this topic Meningococcal ACWY Vaccine Aged Out N o longer eligible based on patient's age to complete this topic Meningococcal B Vaccine Aged Out No l onger eligible based on patient's age to complete this topic RSV Vaccines <20 Months Aged Out No l onger eligible based on patient's age to complete this topic Insurance [employer] Care Teams Turkey Farmer Relationship Specialty [place] [address] PCP - General Family Medicine 02/17/25
--- OUTSIDE RECORDS SUMMARY | 2025-05-02 08:49 | XMS_ITS | Clinical Summary ---
Author Organization [facility] Address [address] [place] [address] Care Team Providers Care Rollway Man Name Role Phone Unavailable Primary Care Provider Unavailabl e Social History Tobacco Use Types Packs/Day Years Used Date Smoking Tobacco: Never Assessed Sex and Gender Information Value Date Recorded Sex Assigned at Not on file Legal Sex Male 3:06 PM EDT Gender Identity Not on file Sexual Orientation Not on file Plan of Treatment Not on file
--- OUTSIDE RECORDS SUMMARY | 2025-05-02 08:49 | XMS_ITS | Data Portability ---
Author Organization [place] - [facility] [employer], Main Office Address [address] [place] [address] Care Team Providers Care Landscape Designer Name Role Phone PAM CARBALLO Primary Care Provider [phone] PAM CARBALLO Referring Provider [phone] Assessment Encounter Date Assessment Date Assessment LastModified by Organization Details LastModified Time 10/07/2024 10/07/2024 54-year-old male presents for follow-up of his right shoulder status post shoulder arthroscopy and rotator cuff repair with lower trapezius tendon on 09/22/2024. He reports he has been feeling good, reports 8/10 pain. He has been doing his pendulums and reports some occasional catching or popping in the shoulder. He is not taking any medications. Incisions are clean dry intact without any signs of infection. Sutures were removed and he was redressed with Steri-Strips. He has no pain with gentle pendulums. He has good motion of his elbow, wrist, and hand. At this point he is progressing as expected. We will see him back in 4 weeks for recheck and we will plan to send him to physical therapy at that point. In the meantime, he should continue to protect his shoulder with the immobilizer and continue doing the exercises as before. Not available 10/07/2024 15:40:33 11/04/2024 11/04/2024 54-year-old male presents for follow-up of his right shoulder. He has a history of a arthroscopy and rotator cuff repair with lower trapezius tendon transfer on 09/22/2024. He was doing well until a couple weeks ago when he fell after tripping over his own feet, landing on his right arm in the sling. He had initial increase in pain but it is gradually getting better. He currently rates pain as 06/03 Incision is clean dry intact without any signs of infection. No tenderness around the shoulder. No pain with gentle range of motion. Sensation intact to light touch. At this point, he is progressing well 6 weeks after surgery, besides the fall that he had. We will have him come out of the sling and begin physical therapy. He reports having some muscle spasms in his biceps and we will give him some Flexeril for that, this began after his recent fall. We will see him back in 6-7 weeks for his three-month postop visit. Not available 11/04/2024 10:49:20 12/23/2024 12/23/2024 54-year-old male presents for follow-up of his right shoulder status post arthroscopy, rotator cuff repair with trapezius tendon transfer on 09/22/2024. He has been doing physical therapy. He is still working on his range of motion strength, feels like still has pain with lifting and can not lift arm all the way. He is not taking any pain medications. Incisions are well healed. No tenderness palpation around the shoulder. He has active elevation 110, passive to 150. Good resistance with internal external rotation. Sensation intact to light touch. He is about 3 months out from surgery. We discussed that he is still in the rehab process. This is a more complex reconstruction with a muscle transfer instead of just a rotator cuff repair, and we discussed that it can be 6-12 months before he feels like he is more normal function with the shoulder. We will have him continue with physical therapy. Follow-up in 2 3 months, or sooner as needed. Not available 12/23/2024 09:52:30 03/24/2025 03/24/2025 54-year-old male presents for follow-up of his right shoulder status post arthroscopy, rotator cuff repair with trapezius tendon transfer on 09/22/2024. He has been doing physical therapy. He is still working on his range of motion and strength, still has pain with lifting and can not lift arm all the way up. He is not taking any pain medications. Physical exam: No tenderness palpation around the shoulder. He has active elevation 110, passive to 150. Good resistance with internal external rotation. Sensation intact to light touch. He is about 6 months out from surgery. He is not having any improvement with therapy, he still has pain with lifting and arm and weakness. We discussed next steps would be a cortisone injection to help with pain so he is able to do more at PT. It is also unreasonable to get a new MRI to see post surgical changes. He would like to do both. Injection given without issue. We will see him back after the MRI to go over results. He states he was very claustrophobic during the last MRI, we will prescribe Xanax. He is in agreement with this plan. [email or web address] Not available 03/24/2025 12:32:06 Plan of Treatment Reminders Order Date Submit Date Provider Last Modified By Organization Details Last Modified Time Details Appointments Establish ed Patient 15 2024 09:30A Ade Mota DPM Not available Not available Not available Lab glycohemo globin, total, blood 2024 025 [facility] [address] [place], [address], 02/02/2025 04:29:57 Referral physical therapist referral - continuat ion of therapy for R shoulder 2024 025 [facility], [address] [place] [address], [address], 12/28/2024 10:19:05 physical therapist referral - Please contact pt to schedule apt for R shoulder. Thanks. PROTOCOLS found on:[email or web address] [employer] 2023 024 [facility], [address] [place] [address], [address], 11/11/2024 09:57:26 Procedures injection /aspirati on joint/bur sa (PROC) 2024 025 [email or web address] In-Office Order, Internal Use Only DO Not Attach Compendium DO Not Attach Compendium, Do Not Delete/merge, [id number] 03/24/2025 10:40:50 Surgeries None recorded. Imaging MRI, shoulder, w/o contrast - Please contact pt to schedule apt for R shoulder [email or web address] [place] [address] Imaging, [address], [place], [address], 04/06/2025 17:05:04 Medication Orders bupivacai ne HCl 0.5 % (5 mg/mL) injection solution [address] [facility], [address], [place], [place], [id number], 03/24/2025 12:20:10 Kenalog 10 mg/mL suspensio n for injection [address] [facility]52423, [address], [place], [place], [id number], 03/24/2025 12:20:10 Xanax 0.25 mg tablet 2024 025 [facility]82090, [address], [place], [place], [id number], 03/24/2025 12:33:18 allopurin ol 100 mg tablet 2024 025 [facility]11362, [address], [place], [place], [id number], 02/01/2025 09:35:14 chlorthal idone 25 mg tablet 2024 025 [facility] #96975, [address], [place], [place], [id number], 02/01/2025 09:35:09 trazodone 50 mg tablet 2024 025 [facility] #57549, [address], [place], [place], [id number], 02/01/2025 09:35:09 Farxiga 5 mg tablet 2024 025 [facility] #21890, [address], [place], [place], [id number], 02/01/2025 09:35:11 Trulicity 3 mg/0.5 mL subcutane ous pen injector 2024 025 [facility]29851, [address], [place], [place], [id number], 02/01/2025 09:35:09 lisinopri l 40 mg tablet 2024 025 [facility]72311, [address], [place], [place], [id number], 02/01/2025 09:35:19 clopidogr el 75 mg tablet 2024 025 [facility] #56877, [address], [place], [place], [id number], 02/01/2025 09:35:08 carvedilo l 12.5 mg tablet 2024 025 [facility] #88572, [address], [place], [place], [id number], 02/01/2025 09:35:09 atorvasta tin 40 mg tablet 2024 025 [facility] #88400, [address], [place], [place], [id number], 02/01/2025 09:35:10 cyclobenz aprine 10 mg tablet 2024 025 [facility] #50811, [address], [place], [place], [id number], 02/01/2025 09:35:10 cyclobenz aprine 10 mg tablet 2023 024 [facility], [address], [place], [place], [id number], 11/04/2024 11:26:47 Patient TargetsNo targets recorded. Patient Instructions Encounter Date Encounter Id Patient Instructions Last Modified By Organization Details Last Modified Time 02/01/2025 [id number] Follow up in 3 months Prescriptions sent to pharmacy Obtain labs Tests: Referral: Recommend: Shingles vaccine [email or web address] Not available 02/01/2025 09:33:03 Reason for Referral Physical Therapist Referral for Pain of right shoulder joint R shoulder post op Please contact pt to schedule apt for R shoulder. Thanks. PROTOCOLS found on:[email or web address] Referring Physician: Brandon Mosley, Orthopedic Surgery, Encounter Date: 11/04/2024 Physical Therapist Referral for Pain of right shoulder joint continuation of therapy for R shoulder Referring Physician: Brandon Mosley, Orthopedic Surgery, Encounter Date: 12/23/2024 Results Created Date Observation Date Name Description Value Unit Range Abnormal Flag Note LastModifiedBy Organization Detail LastModifiedTime 09/07/2009/07/2024 MRI, shoul galo, w/o contr ast No observ ation record ed. [email or web address] [facility] [address] [place], [address], 09/08/2024 07:48:26 09/16/20 24 XR, shoul galo No observ ation record ed. [email or web address] [facility] [place] [address], [place], [address], 09/16/2024 10:14:42 Result Notes None recorded. Problems Name Problem SNOMED Code Status Onset Date Resolution Date Notes Provider Name and Address Organization Details Recorded Time Paronychi a of toe of right foot 48361758139 802081 Completed 202006/30/20[address] Pam Carballo APRN [address] [facility], [address], [place], [address] , [facility] 08/06/202 4 08:39:16 Diverticu litis of colon 626092414 Active Pam Carballo APRN [address], [address], [place], [address] , [facility] 4 14:25:00 Plantar fasciitis of left foot 91997537227 276201 Completed 202106/30/2024 LUIS FELIPE [address], [address], [place], [address] , [facility] 4 08:39:25 Contact dermatiti s caused by urushiol from [facility] jose raul [id number] Completed 06/30/2024 Pam Carballo APRN [address], [address], [place], [address] , [facility] 4 08:39:54 Spermatog enic granuloma of spermatic cord 237025293 Completed 06/30/2024 Pam Carballo APRN [address], [address], [place], [address] , [facility] 4 08:39:35 Obesity 370748304 Active 2016 Pam Carballo APRN [address], [address], [place], [address] , [facility] 4 08:40:59 History of colectomy 442571544 Completed 201608/15/2017 Not Available [employer] 3 02:53:07 Primary erectile dysfuncti on 660483716 Active LUIS FELIPE [address], [address], [place], [address] , [employer] [facility] 4 14:25:27 Anxiety 23756620 Active Pam Carballo APRN [address], [address], [place], [address] , [employer] [facility] 4 14:24:15 Coronary arteriosc lerosis 27409833 Completed 201706/30/2024 Pam Carballo APRN [address], [address], [place], [address] , [employer] 4 08:41:35 Essential hypertens ion 35184488 Completed 201608/15/2017 Pam Carballo APRN [address], [address], [place], [address] , [employer] 4 08:40:34 Fistula of urinary bladder 00415037 Active Pam Carballo APRN [address], [address], [place], [address] , [employer] 4 08:40:37 History of non-ST segment elevation myocardia l infarctio n 772108563 Active 2016 Pam Carballo APRN [address], [address], [place], [address] , [facility] 4 08:40:40 Tetanus 07445087 Completed 06/30/2024 Pam Carballo APRN [address], [address], [place], [address] , [facility] 4 08:39:41 Obstructi ve sleep apnea syndrome 11691661 Completed 201606/30/2024 Pam Carballo APRN [address], [address], [place], [address] , [facility] 4 08:41:16 Lumbar radiculop athy 694711946 Active 2022 Pam Carballo APRN [address], [address], [place], [address] , [facility] 4 14:25:05 Hyperlipi demia 53809343 Active 2022 Pam Carballo APRN [address], [address], [place], [address] , [facility] 4 14:25:11 Essential hypertens ion 95700477 Active 2022 Pam Carballo APRN [address], [address], [place], [address] , [employer] 4 08:40:34 Vitamin D deficienc y 06072886 Active 2022 Pam Carballo APRN [address], [address], [place], [address] , [facility] 4 14:25:47 Chronic obstructi ve pulmonary disease 78099781 Active 2022 Pam Carballo APRN [address], [address], [place], [address] , [facility] 4 14:24:46 Diabetic periphera l neuropath y 401833448 Active 2022 Pam Carballo APRN [address], [address], [place], [address] , [employer] 4 14:24:55 Chronic kidney disease 103715042 Active 2022 Pam Carballo APRN [address], [address], [place], [address] , [employer] 4 14:24:36 Gout 82427981 Active 2022 Pam Carballo APRN [address], [address], [place], [address] , [facility] 4 14:25:03 Testoster one level below reference range 987307081 Active 2022 Pam Carballo APRN [address], [address], [place], [address] , [facility] 4 08:39:37 Erythrocy tosis 370153266 Completed 202206/30/2024 Pam Carballo APRN [address], [address], [place], [address] , [facility] 4 08:40:31 Bronchiec tasis 39932640 Completed 202206/30/[address], [address], [place], [address] , [employer] [facility] [place] [employer] [facility] 4 08:40:14 Mild chronic obstructi ve pulmonary disease 454402126 Completed 202206/30/[address], [address], [place], [address] , [employer] [facility] 4 08:41:09 CT of chest abnormal 16195317052 294944 Completed 202206/30/[address], [address], [place], [address] , [employer] [facility] 4 08:40:28 Atypical chest pain 709101581 Active [address], [address], [place], [address] , [employer] [facility] 4 14:24:32 Diabetes mellitus 08710596 Active [address], [address], [place], [address] , [employer] [facility] 4 14:24:53 Asthma 567962794 Active [address], [address], [place], [address] , [employer] [facility] 4 14:24:22 Mood swings 63461936 Completed 202206/30/[address], [address], [place], [address] , [employer] [facility] 4 08:40:54 Coronary atheroscl erosis 038972341 Active [address], [address], [place], [address] , [employer] [facility] [facility] 4 14:24:50 Sleep related hypoxemia 97307964210 9102 Completed 202206/30/2024 Pam Carballo APRN [address], [address], [place], [address] , [employer] [facility] 4 08:39:31 Open wound of left lower leg 29951879351 674123 Completed 202206/30/2024 Pam Carballo APRN [address], [address], [place], [address] , [employer] [facility] 4 08:39:23 Epidermoi d cyst of skin 562111529 Completed 202206/30/2024 Pam Carballo APRN [address], [address], [place], [address] , [employer] [facility] 4 08:40:02 Open wound of right lower leg 08130976080 161761 Completed 202206/30/[address], [address], [place], [address] , [facility] 4 08:39:18 Viral syndrome 362245596 Completed 202206/30/[address], [address], [place], [address] , [employer] [facility] [facility] 4 08:39:47 Acute sinusitis 81038296 Completed 202206/30/2024 Pam Carballo APRN [address], [address], [place], [address] , [employer] [facility] 4 08:40:07 Perianal abscess 59089531 Completed 202306/30/2024 Pam Carballo APRN [address], [address], [place], [address] , [employer] [facility] 4 08:39:14 Albuminur ia 847220531 Completed 202306/30/[address], [address], [place], [address] , [employer] [facility] 4 08:40:12 Hyperpara thyroidis m 99872576 Active [address], [address], [place], [address] , [employer] [facility] 4 08:40:42 Celluliti s of left lower limb 74542466721 265711 Completed 06/30/[address], [address], [place], [address] , [employer] [facility] 4 08:40:22 Acute-on- chronic renal failure 539087208 Completed 06/30/[address], [address], [place], [address] , [employer] [facility] 4 08:40:10 Hypertens savana disorder 50008007 Completed 06/30/[address], [address], [place], [address] , [employer] [facility] 4 08:40:45 Rectal abscess 325696814 Completed 06/30/2024 LUIS FELIPE [address], [address], [place], [address] , [employer] [facility] 4 08:39:28 Insomnia 098301713 Active [address], [address], [place], [address] , [employer] [facility] 4 09:11:48 Pain of right shoulder region Active [address], [address], [place], [address] , [employer] [facility] 4 09:12:57 Pain of right shoulder joint 86190202631 665004 Active 2023 MURALI Douglass null, [facility] 4 10:24:48 Environme ntal allergy 378874398 Active 2023 Marie Reyna null, [facility] 4 10:55:24 Heart disease 61105997 Active 2023 Marie Reyna null, [facility] 4 10:55:37 Kidney disease 66149085 Active 2023 Marie Reyna null, [facility] 4 10:56:07 Pneumonia 137714291 Active 2023 Marie Reyna null, [facility] 4 10:56:19 Notes:HERNIATED DISC, URINAR Y/BLADDER/KIDNEY PROBLEM, USE OF BLOOD THINNERS Medical History: Anxiety COVID infection 05/2021 Rhinitis to multiple environmental allergens with postnasal drip Eosinophils 260/uL IgE 68 IU/mL AAT PiMS 139 mg% Mild COPD RLL and lingular bronchiectasis Erythrocytosis Obesity Hypertension Mixed hyperlipidemia T2DM with microalbuminuria & neuropathy CAD s/p NSTEMI Elevated BNP Diverticulosis/Diverticulitis CKD ED Vit D deficiency T8-T12 DDD L5-S1 stenosis Right Fuji-Umnfu-Dxlktda disease Gout Left plantar fasciitis Procedure History: Jada-En-Y gastric bypass 2008 Partial colectomy for diverticular rupture 2014 Vasectomy 2015 1 coronary artery stent placement 2017 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 Procedures Surgical History Date Name Laterality Status Provider Name and Address Organization Details Recorded Time 09/22/20 24 Rotator cuff surgery completed Ericka Peters MA [facility] 02/01/2025 09:03:39 12/30/19 24 other completed Coral Butler MA [facility] 01/02/2024 12:16:22 11/13/20 23 procedure on wound completed Ioana Rabago CMA [facility] 02/11/2024 14:24:18 08/26/20 23 Suture/Staple removal completed DIANNE Sandhu [address], [address], [place], [address], [facility] 08/26/2023 12:56:58 12/03/19 15 vasectomy completed Not Available [facility] 3 02:47:42 Gastric Bypass completed Not Available [facility] 01/23/2023 02:47:42 Colonoscopy completed Not Available [facility] 01/23/2023 02:47:42 Imaging Results None recorded. Procedure Notes None recorded. Medical Equipment None Reported. Allergies Allergen ID Allergen Name Allergen Category Reaction Reaction Severity Criticality Documentation Date Start Date Code Code System Note Provider Name and Address Organization Details Recorded Time 98610 No known allergy (situatio n) Not available Not available Not available Not available 05/11/2024 29585 6003 SNOMED Pam CarballoLUIS FELIPE [address], [address], [place], [address], [employer] 4 13:40:32 No known drug allergies Medications Name Sig Start Date Stop Date Status Note LastModified by Organization Details LastModified Time cyclobenza vero 10 mg tablet Take 1 tablet 3 times a day by oral route as needed. 2024 active Not Available Not Available Not Avai lable amoxicilli n 500 mg capsule 09/27 completed Not Available Not Available Not Available fluconazol e 100 mg tablet 09/27 completed Not Available Not Available Not Available atorvastat in 40 mg tablet TAKE 1 TABLET DAILY active Not Available Not Available No t Available methocarba mol 500 mg tablet TAKE 1 TABLET BY MOUTH EVERY 6 HOURS NEEDED FOR MUSCLE SPASM 02/01 completed Not Available Not Available Not Available metformin 500 mg tablet Take 2 tablets twice a day by oral route for 90 days. 05/20 completed Not Available Not Available Not Available cyanocobal gamboa (vit B-12) ER 1,000 mcg tablet,ext ended release Take 2500 microgram s by oral route. 02/01 completed Not Available Not Available Not Available hydrocodon e 7.5 mg-ibuprof en 200 mg tablet active Not Available Not Available Not Available carvedilol 25 mg tablet 02/04 completed Not Available Not Available Not Available venlafaxin e ER 37.5 mg capsule,ex tended release 24 hr active Not Available Not Available Not Available clonidine HCl 0.1 mg tablet active Not Available Not Available Not Available acetaminop hen 325 mg tablet 975 mg by oral route. 08/23 completed Not Available Not Available Not Available carvedilol 6.25 mg tablet Take 1 tablet twice a day by oral route. 03/16 completed Not Available Not Available Not Available prednisone 10 mg tablet Take 3 x 2 days, 2 x 2 days, 1 x 2 days active Not Available Not Available No t Available doxycyclin e hyclate 100 mg capsule TAKE 1 CAPSULE BY MOUTH TWICE A DAY FOR 5 DAY 02/10 completed Not Available Not Available Not Available carvedilol 12.5 mg tablet TAKE 1 TABLET TWICE A DAY 2024 active Not Available Not Available Not Avai lable ipratropiu m 0.5 mg-albuter ol 3 mg (2.5 mg base)/3 mL nebulizati on soln USE 1 VIAL VIA NEBULIZER EVERY 4 TO 6 HOURS NEEDED 08/31 completed Not Available Not Available Not Available ketoconazo le 2 % shampoo APPLY TOPICALLY TO THE AFFECTED AREA 3 TIMES PER WEEK 11/27 completed Not Available Not Available Not Available trazodone 50 mg tablet Take 1 tablet every day by oral route, for insomnia. 2024 active Not Available Not Available Not Avai lable triamcinol one acetonide 0.5 % topical cream APPLY THIN LAYER TOPICALLY TO THE AFFECTED AREA TWICE DAILY FOR RASH 02/10 completed Not Available Not Available Not Available azithromyc in 250 mg tablet TAKE 2 TABLETS BY MOUTH FIRST DAY THEN TAKE 1 TABLET BY MOUTH EVERY DAY 02/10 completed Not Available Not Available Not Available pravastati n 40 mg tablet Take 1 tablet every day by oral route. 02/03 completed Not Available Not Available Not Available ibuprofen 800 mg tablet TAKE 1 TABLET BY MOUTH NEEDED EVERY 6-8 HOURS. 09/14 completed Not Available Not Available Not Available Glucagon Emergency Kit 1 mg solution for injection 1 mg by injection route. 08/23 completed Not Available Not Available Not Available tizanidine 4 mg tablet TK 1 T PO Q 6 H PRN active Not Available Not Available No t Available benzonatat e 200 mg capsule Take 1 capsule 3 times a day by oral route as needed. active Not Available Not Available No t Available hydrocodon e 5 mg-acetami nophen 325 mg tablet TAKE 1 TABLET BY MOUTH EVERY 6 HOURS NEEDED FOR BREAKTHRO UGH PAIN 02/01 completed Not Available Not Available Not Available prasterone (DHEA) 25 mg tablet Take 25 mg by oral route. 09/14 completed Not Available Not Available Not Available griseofulv in microsize 500 mg tablet 02/11 completed Not Available Not Available Not Available naltrexone 50 mg tablet TAKE 1/2 TAB PO QD . REPLACES CONTRAVE 11/21 completed Not Available Not Available Not Available lisinopril 20 mg tablet TK 1 T PO D 12/07 completed Not Available Not Available Not Available bupivacain e HCl 0.5 % (5 mg/mL) injection solution Take 4 mL by injection route. 2024 active Not Available Not Available Not Avai lable prednisone 20 mg tablet TAKE 2 TABLETS BY MOUTH ONCE DAILY FOR 4 DAYS 11/27 completed Not Available Not Available Not Available Viagra 50 mg tablet Take 1 tablet every day by oral route as needed for 30 days. 05/23 completed Not Available Not Available Not Available Debrox 6.5 % ear drops INSTILL 5 DROPS INTO RIGHT EAR BY OTIC ROUTE 2 TIMES PER DAY x 5 days prior to ear irrigatio n active Not Available Not Available No t Available Accu-Chek Softclix Lancets active Not Available Not Available Not Available Advair Diskus 100 mcg-50 mcg/dose powder for inhalation INHALE 1 PUFF BY MOUTH TWICE DAILY 02/11 completed Not Available Not Available Not Available metronidaz ole 500 mg tablet 09/27 completed Not Available Not Available Not Available acetaminop hen 300 mg-codeine 30 mg tablet Take 1 tablet every 6 hours by oral route as needed. active Not Available Not Available No t Available clopidogre l 75 mg tablet TAKE 1 TABLET DAILY 2024 active Not Available Not Available Not Avai lable chlorthali done 25 mg tablet Take 1 tablet every day by oral route. 2024 active Not Available Not Available Not Avai lable amlodipine 5 mg tablet Take 1 tablet every day by oral route at bedtime. 11/27 completed Not Available Not Available Not Available allopurino l 100 mg tablet Take 1 tablet every day by oral route. 2024 active Not Available Not Available Not Avai lable ciprofloxa morgan 500 mg tablet TAKE 1 TABLET BY MOUTH TWICE DAILY 02/17 completed Not Available Not Available Not Available Tamiflu 75 mg capsule active Not Available Not Available N ot Available sulfametho xazole 800 mg-trimeth oprim 160 mg tablet 09/27 completed Not Available Not Available Not Available SPS (with sorbitol) 15 gram-20 gram/60 mL oral suspension 15 g by oral route. 08/23 completed Not Available Not Available Not Available aspirin 81 mg tablet,del ayed release TK 1 T PO QD 02/11 completed Not Available Not Available Not Available tramadol 50 mg tablet active Not Available Not Available Not Available triamcinol one acetonide 0.1 % topical cream APPLY A THIN LAYER TO THE AFFECTED AREA(S) BY TOPICAL ROUTE 2 TIMES PER DAY PRN active Not Available Not Available No t Available carvedilol 3.125 mg tablet Take 1 tablet twice a day by oral route. 12/23 completed Not Available Not Available Not Available EPA (with DHA) capsule Take 1000 mg by oral route. 12/04 completed Not Available Not Available Not Available guaifenesi n 200 mg tablet TAKE 1 TABLET BY MOUTH ONCE EVERY 6 HOURS 11/27 completed Not Available Not Available Not Available glimepirid e 1 mg tablet TK 1 T PO QD 09/03 completed Not Available Not Available Not Available oxycodone- acetaminop hen 5 mg-325 mg tablet TAKE 1 TABLET BY MOUTH EVERY 6 HOURS NEEDED FOR PAIN 02/10 completed Not Available Not Available Not Available Tessalon Perles 100 mg capsule Take 1 capsule 3 times a day by oral route. 02/21 completed Not Available Not Available Not Available bupropion HCl 100 mg tablet TAKE 1 TABLET DAILY 02/10 completed Not Available Not Available Not Available terbinafin e HCl 250 mg tablet Take 1 tablet every day by oral route. 02/03 completed Not Available Not Available Not Available amoxicilli n 875 mg tablet active Not Available Not Available Not Available famotidine 20 mg tablet TK 1 T PO DAILY active Not Available Not Available No t Available Humalog U-100 Insulin 100 unit/mL subcutaneo us solution 1 unt by sub-q route. 08/23 completed Not Available Not Available Not Available OneTouch Ultra Test strips USE DIRECTED TO CHECK SUGARS TWICE DAILY 11/27 completed Not Available Not Available Not Available Kenalog 10 mg/mL suspension for injection Take 1 mL by injection route. 2024 active [facility]: [phone] Not Available Not Available Not Available meclizine 25 mg tablet TK 1 T PO TID PRN 10/26 completed Not Available Not Available Not Available Xanax 0.25 mg tablet Take 1 tablet by oral route as directed, for Please take 1 tablet 30 minutes prior to procedure repeat if needed.. 2024 active Not Available Not Available Not Avai lable hydrocodon e 7.5 mg-acetami nophen 325 mg tablet TK 1 T PO Q 3-4 H PRN active Not Available Not Available No t Available cephalexin 500 mg capsule TAKE 1 CAPSULE BY MOUTH FOUR TIMES DAILY FOR 10 DAYS DIRECTED 08/26 completed Not Available Not Available Not Available erythromyc in 5 mg/gram (0.5 %) eye ointment 02/11 completed Not Available Not Available Not Available naproxen sodium 550 mg tablet TAKE 1 TABLET BY MOUTH TWICE DAILY 02/21 completed Not Available Not Available Not Available bumetanide 0.5 mg tablet Take 0.5 mg by oral route. 09/03 completed Not Available Not Available Not Available tobramycin 0.3 % eye drops 02/11 completed Not Available Not Available Not Available Flagyl 375 mg capsule TK 1 C PO Q 6 H active Not Available Not Available No t Available lisinopril 10 mg tablet Take 1 tablet every day by oral route for 30 days. active Not Available Not Available No t Available meropenem 1 gram intravenou s solution 1000 mg by intraven. route. 08/22 completed Not Available Not Available Not Available Advair Diskus 250 mcg-50 mcg/dose powder for inhalation active Not Available Not Available N ot Available indomethac in 50 mg capsule Take 1 capsule twice a day by oral route as directed for 10 days. active Not Available Not Available No t Available fluoxetine 10 mg capsule Take 1 capsule every day by oral route. active Not Available Not Available No t Available diclofenac potassium 50 mg tablet TAKE 1 TABLET BY MOUTH THREE TIMES DAILY 02/10 completed Not Available Not Available Not Available gabapentin 300 mg capsule TK 1 C PO BID active Not Available Not Available No t Available bumetanide 1 mg tablet 09/03 completed Not Available Not Available Not Available montelukas t 10 mg tablet Take 1 tablet every day by oral route. 03/12 completed Not Available Not Available Not Available hydroxyzin e HCl 25 mg tablet 09/14 completed Not Available Not Available Not Available hydrocodon e 5 mg-acetami nophen 500 mg tablet active Not Available Not Available No t Available bisacodyl 5 mg tablet,del ayed release TK 4 TS PO AT 7PM THE NIGHT BEFORE PROCEDURE 09/27 completed Not Available Not Available Not Available pravastati n 20 mg tablet TK 1 T PO QD 11/20 completed Not Available Not Available Not Available mupirocin 2 % topical ointment APPLY A SMALL AMOUNT TO THE AFFECTED AREA right great toenail BY TOPICAL ROUTE 3 TIMES PER DAY 11/27 completed Not Available Not Available Not Available furosemide 20 mg tablet TK 1 T PO QD active Not Available Not Available No t Available gabapentin 100 mg capsule TAKE ONE CAPSULE BY MOUTH EVERY MORNING, 1 CAPSULE IN AFTERNOON NEEDED, MAY CONTINUE 300MG CAPSULE AT BEDTIME 10/02 completed Not Available Not Available Not Available Viagra 100 mg tablet START WITH 1/2 TABLET BY MOUTH HALF AN HOUR BEFORE INTERCOUR SE. MAY INCREASE TO ONE TABLET IF NEEDED. 12/12 completed Not Available Not Available Not Available levofloxac in 500 mg tablet active Not Available Not Available Not Available oxycodone- acetaminop hen 7.5 mg-325 mg tablet 09/27 completed Not Available Not Available Not Available methylpred nisolone 4 mg tablets in a dose pack FOLLOW PACKAGE DIRECTION S 02/04 completed Not Available Not Available Not Available albuterol sulfate HFA 90 mcg/actuat ion aerosol inhaler INHALE 1 PUFF BY MOUTH EVERY 4 HOURS NEEDED active Not Available Not Available No t Available Vitamin D2 1,250 mcg (50,000 unit) capsule Take 1 capsule every week by oral route for 28 days. active Not Available Not Available No t Available colchicine 0.6 mg tablet TAKE 1 TABLET BY MOUTH EVERY DAY NEEDED FOR GOUT 03/01 completed Not Available Not Available Not Available lisinopril 40 mg tablet TAKE 1 TABLET DAILY active Not Available Not Available No t Available cefdinir 300 mg capsule 02/11 completed Not Available Not Available Not Available fluticason e propionate 50 mcg/actuat ion nasal spray,susp ension SHAKE AND USE 2 SPRAYS IN EACH NOSTRIL DAILY IN THE EVENING 09/14 completed Not Available Not Available Not Available naproxen 500 mg tablet Take 1 tablet twice a day by oral route for 30 days. active Not Available Not Available No t Available amoxicilli n 875 mg-potassi um clavulanat e 125 mg tablet TK 1 T PO Q 12 H FOR 7 DAYS 10/26 completed Not Available Not Available Not Available amoxicilli n 500 mg-potassi um clavulanat e 125 mg tablet 09/27 completed Not Available Not Available Not Available clindamyci n phosphate 1 % topical solution APPLY 2 DROPS TO PROCEDURE SITE DAILY 02/10 completed Not Available Not Available Not Available Daily Multi-Nayeli min tablet Take 6 tablets every day by oral route. 11/27 completed Not Available Not Available Not Available enoxaparin 40 mg/0.4 mL subcutaneo us syringe 40 mg by sub-q route. 08/23 completed Not Available Not Available Not Available dextrose 50 % in water (D50W) intravenou s syringe 12.5 g by intraven. route. 08/23 completed Not Available Not Available Not Available escitalopr am 10 mg tablet Take 10 mg by oral route. 02/01 completed Not Available Not Available Not Available Wellbutrin XL 150 mg 24 hr tablet, extended release Take 150 mg by oral route. 09/14 completed Not Available Not Available Not Available coenzyme Q10 200 mg capsule 200 mg by oral route. active Not Available Not Available No t Available metronidaz ole 1 % topical gel APPLY TOPICALLY TO FACE EVERY DAY IN THE MORNING 12/04 completed Not Available Not Available Not Available Lyrica 50 mg capsule Take 1 capsule twice a day by oral route for 30 days. 10/05 completed Not Available Not Available Not Available sodium chloride 0.9 % intravenou s piggyback 100 mL by intraven. route. 08/22 completed Not Available Not Available Not Available citrulline 05/23 completed Not Available Not Available Not Available L-Arginine 05/23 completed Not Available Not Available Not Available testostero ne 07/22 completed Not Available Not Available Not Available Fish Oil TK 1T PO QD 10/06 completed Not Available Not Available Not Available cholecalci ferol (vitamin D3) 05/23 completed Not Available Not Available Not Available Vitamin D 05/23 completed Not Available Not Available Not Available multivitam in TK 1T PO QD 11/27 completed Not Available Not Available Not Available BD Ultra-Fine Short Pen Needle 31 gauge x 5/16 INJECT VICTOZA ONCE D 10/26 completed Not Available Not Available Not Available MoviPrep 100 gram-7.5 gram-2.691 gram oral powder packet 09/27 completed Not Available Not Available Not Available Januvia 50 mg tablet Take 1 tablet every day by oral route for 30 days. 05/23 completed Not Available Not Available Not Available Januvia 100 mg tablet Take 1 tablet every day by oral route for 30 days. 05/23 completed Not Available Not Available Not Available ondansetro n HCl (PF) 4 mg/2 mL injection solution 4 mg by injection route. 08/23 completed Not Available Not Available Not Available Glutose-15 40 % oral gel 15 g by oral route. 08/23 completed Not Available Not Available Not Available Golytely 236 gram-22.74 gram-6.74 gram-5.86 gram oral solution DIRECTED 02/01 completed Not Available Not Available Not Available CoQ-10 05/23 completed Not Available Not Available Not Available cholecalci ferol (vit D3)(bulk) Take 1 PO QD 05/23 completed 5,000 units Not Available Not Available Not Available cholecalci ferol (vitamin D3) 50 mcg (2,000 unit) capsule Take 1 capsule every day by oral route as directed. active Not Available Not Available No t Available Gavilyte-C 240 gram-22.72 gram-6.72 gram-5.84 gram oral solution MIX AND DRINK DIRECTED active Not Available Not Available No t Available B12 09/14 completed Not Available Not Available Not Available Dulera 100 mcg-5 mcg/actuat ion HFA aerosol inhaler Inhale 2 puffs twice a day by inhalatio n route. active Not Available Not Available No t Available Suprep Bowel Prep Kit 17.5 gram-3.13 gram-1.6 gram oral solution MIX AND DRINK DIRECTED 05/23 completed Not Available Not Available Not Available Vicodin ES 7.5 mg-300 mg tablet active Not Available Not Available No t Available Victoza 3-Everette 0.6 mg/0.1 mL (18 mg/3 mL) subcutaneo us pen injector ADMINISTE R 0.6 MG UNDER THE SKIN EVERY DAY FOR 1 WEEK. INCREASE IT TO 1.2 MG UNDER THE SKIN EVERY DAY AFTER 1 WEEK 05/23 completed Not Available Not Available Not Available Virtussin AC 10 mg-100 mg/5 mL oral liquid 02/11 completed Not Available Not Available Not Available Farxiga 5 mg tablet Take 1 tablet every day by oral route as directed. 2024 active Not Available Not Available Not Avai lable morphine 4 mg/mL intravenou s syringe 2 mg by intraven. route. 08/23 completed Not Available Not Available Not Available Jardiance 10 mg tablet Take 1 tablet every day by oral route for 10 days. 12/07 completed Not Available Not Available Not Available Jardiance 25 mg tablet Take 25 mg by oral route. 02/01 completed Not Available Not Available Not Available Trulicity 1.5 mg/0.5 mL subcutaneo us pen injector INJECT 1.5 MG UNDER THE SKIN WEEKLY active Not Available Not Available No t Available colchicine 0.6 mg capsule Take 1 capsule every day by oral route. 03/01 completed Not Available Not Available Not Available OneTouch Verio Flex Meter USE DIRECTED TO CHECK SUGARS TWICE DAILY active Not Available Not Available No t Available clindamyci n 900 mg/50 mL in 0.9% sodium chloride intravenou s piggyback 900 mg by intraven. route. 08/22 completed Not Available Not Available Not Available clindamyci n 600 mg/50 mL in 0.9% sodium chloride intravenou s piggyback 600 mg by intraven. route. 08/22 completed Not Available Not Available Not Available L-Arginine (alpha-ket oglutarat) 05/23 completed Not Available Not Available Not Available Lokelma 10 gram oral powder packet 10 g by oral route. 08/23 completed Not Available Not Available Not Available Bariatric Multivitam ins 45 mg iron-800 mcg-120 mcg capsule 1 capsule by oral route. active Not Available Not Available No t Available OneTouch Delica Plus Lancet 33 gauge USE DIRECTED TO CHECK SUGARS TWICE DAILY 11/27 completed Not Available Not Available Not Available vancomycin 1.75 gram/350 mL in diluent combinatio n IV piggyback 1750 mg by intraven. route. 08/23 completed Not Available Not Available Not Available Trulicity 3 mg/0.5 mL subcutaneo us pen injector Inject 3 mg every week by subcutane ous route as directed. 2024 active Not Available Not Available Not Avai lable Flulaval Quad (PF) 60 mcg (15 mcg x 4)/0.5 mL IM syringe 0.5 mL by intramusc . route. 08/22 completed Not Available Not Available Not Available Vitals Date Recorded Body height Body mass index (BMI) Body weight Provider Name and Address Organization Details Last Updated DateTime 12/23/2024 172.72 cm 33.5 kg/m2 86533.32 g VALERY Uribe [employer] 12/23/2024 09:17:43 Date Recorded Body height Body mass index (BMI) Body weight Body temperature Heart rate Oxygen saturation Oxygen saturation in Arterial blood by Pulse oximetry Systolic blood pressure Diastolic blood pressure Provider Name and Address Organization Details Last Updated DateTime 172.72 cm 34.4 kg/m2 067156. 88 g 97.8 [degF] 60 /min 97 % 97 % 118 mm[Hg] 74 mm[Hg] Ericka Peters [facility] [employer] [facility] 08:58:59 Date Recorded Body height Body mass index (BMI) Body weight Provider Name and Address Organization Details Last Updated DateTime 03/24/2025 172.72 cm 33.5 kg/m2 87367.32 g Mallory Leung [facility] 03/24/2025 10:08:12 Date Recorded Body height Body mass index (BMI) Body weight Provider Name and Address Organization Details Last Updated DateTime 10/07/2024 172.72 cm 33.5 kg/m2 94449.32 kyrie Mallory Leung [facility] [employer] [facility] 10/07/2024 13:40:43 Date Recorded Body height Body mass index (BMI) Body weight Provider Name and Address Organization Details Last Updated DateTime 11/04/2024 172.72 cm 33.5 kg/m2 81192.32 g Alexus Wiley [facility] 11/04/2024 09:33:52 Social History Question Answer Notes LastModified by Organizat ion Details LastModified Time Tobacco Smoking Status Never Smoker Not Available [facility] 01/23/2023 02:34:01 Do You Have An Advance Directive? No [id number] Information not available 01/23/2023 Do You Wear A Helmet When Biking? No MIGRATION.[id number] Information not available 01/23/2023 What Is Your Level Of Caffeine Consumption? Moderate [id number] Information not available 01/23/2023 How Much Tobacco Do You Chew? None [id number] Information not available 01/23/2023 In The 14 Days Before Symptom Onset, Have You Had Close Contact With A Laboratory-confi rmed COVID-19 While That Case Was Ill? No [id number] Information not available 01/23/2023 In The 14 Days Before Symptom Onset, Have You Had Close Contact With A Person Who Is Under Investigation For COVID-19 While That Person Was Ill? No MIGRATION.[id number] Information not available 01/23/2023 What Type Of Diet Are You Following? REGULAR MIGRATION.[id number] Information not available 01/23/2023 Which Illicit Or Recreational Drugs Have You Used? None [id number].[id number] Information not available 01/23/2023 What Is The Highest Grade Or Level Of School You Have Completed Or The Highest Degree You Have Received? [id number] Information not available 01/23/2023 Do You Have An Electrostatic Air Filter? No MIGRATION.78362 [id number] Information not available 01/23/2023 Have There Been Any Changes To Your Family Or Social Situation? No MIGRATION.[id number] [id number] Information not available 01/23/2023 What Is The Fluoride Status Of Your Home? Unknown MIGRATION.[id number] Information not available 01/23/2023 Are There Any Guns Present In Your Home? Yes MIGRATION.[id number] Information not available 01/23/2023 Do You Have A Humidifier? No MIGRATION.92329 [id number] Information not available 01/23/2023 Do You Use Insect Repellent Routinely? No In Fall Information not available 02/01/2025 Where Do You Live? [place] MIGRATION.[id number] Information not available 01/23/2023 Do You Have Moisture Problems In Your Home? No MIGRATION.[id number] Information not available 01/23/2023 What Was The Date Of Your Most Recent Tobacco Screening? 02/01/2025 Information not available 02/01/2025 Do You Have Any Pets? Yes MIGRATION.11108 [id number] Information not available 01/23/2023 What Is Your Relationship Status? Information not available 08/10/2024 Do You Use Your Seat Belt Or Car Seat Routinely? Yes MIGRATION.[id number] Information not available 01/23/2023 Do You Have Smoke And Carbon Monoxide Detectors In Your Home? Yes MIGRATION.55345 [id number] Information not available 01/23/2023 Are You Passively Exposed To Smoke? No MIGRATION.57400 [id number] Information not available 01/23/2023 Are There Any Smokers In Your House? No MIGRATION.15473 [id number] Information not available 01/23/2023 Do You Use Sunscreen Routinely? Yes MIGRATION.06431 [id number] Information not available 01/23/2023 Have You Recently Traveled Abroad? No MIGRATION.40574 12126 Information not available 01/23/2023 Do You Have Any Dietary Restrictions? No MIGRATION.25370 93085 Information not available 01/23/2023 Sex: Unknown Functional Status Question Answer Note LastModified by Organizat ion Details LastModified Time Do you use any illicit or recreational drugs? No [email or web address] Information not available 02/04/2023 What is your level of alcohol consumption? Occasional [email or web address] Information not available 09/14/2024 Do you or have you ever used smokeless tobacco? Never used smokeless tobacco MIGRATION.[id number] Information not available 01/23/2023 Are you currently employed? Yes Information not available 02/01/2025 What is your occupation? [employer] MIGRATION.[id number] Information not available 01/23/2023 Do you or have you ever used e-cigarettes or vape? Never used electronic cigarettes MIGRATION.174647 [id number] Information not available 01/23/2023 What is your exercise level? None MIGRATION.[id number] Information not available 01/23/2023 Mental Status Question Answer Note LastModified by Organizat ion Details LastModified Time Do you feel stressed (tense, restless, nervous, or anxious, or unable to sleep at night)? [id number] Information not available 01/23/2023 Family History Relationship Description Onset Age of this Age Resolved Age Notes LastModified by Organization Details LastModified Time Mother Diabetes mellitus [id number] Not available 01/23/2023 02:47:43 Mother Hypertensive disorder [id number] Not available 01/23/2023 02:47:43 Mother Congestive heart failure [id number] [id number] Not available 01/23/2023 02:47:43 Mother Chronic obstructive pulmonary disease [id number] [id number] Not available 01/23/2023 02:47:43 Father Diabetes mellitus MIGRATION.600 [id number] Not available 01/23/2023 02:47:43 Father Hypertensive disorder [id number] Not available 01/23/2023 02:47:43 Father Malignant neoplasm of skin MIGRATION.[id number] Not available 01/23/2023 02:47:43 Brother Diabetes mellitus MIGRATION.719 [id number] Not available 01/23/2023 02:47:43 Brother Heart disease MIGRATION.547 [id number] Not available 01/23/2023 02:47:43 Brother Hypertensive disorder MIGRATION.301 [id number] Not available 01/23/2023 02:47:43 Brother Coronary artery bypass graft MIGRATION.453 [id number] Not available 01/23/2023 02:47:44 Brother Smoker MIGRATION.742 [id number] Not available 01/23/2023 02:47:44 Brother Heavy drinker MIGRATION.348 [id number] Not available 01/23/2023 02:47:44 Mother Heart disease [email or web address] Not available 2023 10:57:28 Medical History Condition Response NERVE DISEASE N BLINDNESS N RHEUMATIC FEVER N KIDNEY STONES N BLADDER PROBLEMS N MRSA N OTHER # 1 N POLIO N LUNG DISEASE/DISORDER N COPD N RADIATION / CHEMOTHERAPY N Other # 2 N BLOOD DISEASES N SURGERY N EAR OR HEARING PROBLEMS N MUMPS N DEPRESSION (INCLUDING POST ) N BOWEL PROBLEMS N STROKE/TIA N ULCERS N BENIGN PROSTATIC HYPERPLASIA N MEASLES N MYOCARDIAL INFARCTION N OBESITY Y GERD/NAUSEA N ANEURYSM N URINARY/BLADDER/KIDNEY PROBLEMS Y CORONARY ARTERY DISEASE (CAD) Y ADDICTION CONCERNS N Impotence N ENDOMETRIOSIS N USE OF BLOOD THINNERS Y SKIN PROBLEMS N GASTROINTESTINAL DISORDER N PERIPHERAL VASCULAR DISEASE N MUSCLE,JOINT OR BONE PROBLEMS N GASTROINTESTINAL BLEEDING N BLOOD CLOTS N ASTHMA N CATARACTS N ERECTILE DYSFUNCTION N VARICOSITIES N GI PROBLEMS N Low Testosterone N INFERTILITY N AIDS/HIV N CHEMOTHERAPY / RADIATION N LIVER DISEASE N MALE HYPOGONADISM N HYPERTENSION Y Deficiency N ANXIETY DISORDER Y BLOOD TRANSFUSION N ANEMIA/BLOOD DISORDER N CHRONIC EAR INFECTIONS N BRONCHITIS N TUBERCULOSIS N GLAUCOMA N FOOT PROBLEM N DIVERTICULITIS N SLEEP APNEA N CHICKENPOX N ALLERGIES/HAYFEVER Y INFECTIOUS DISEASE N PROSTATE N HEART ARRHYTHMIA N INSOMNIA N HIGH CHOLESTEROL / HYPERLIPIDEMIA Y EYE PROBLEMS Y HYPERTHYROIDISM N NEUROLOGICAL PROBLEMS N EDEMA N CHRONIC PAIN SYNDROME N HYPOTHYROIDISM N CAROTID BLOCKAGE N CONSTIPATION N BACK / NECK PROBLEMS N ATHEROSCLEROSIS N BREAST PROBLEMS N DIALYSIS N ECZEMA N OSTEOPOROSIS N ARTHRITIS N APPENDICITIS N DIABETES, TYPE Y BAD TEETH N ENT N HEARTBURN / REFLUX N AUTISM SPECTRUM DISORDER (ASD) N HEPATITIS / LIVER DISEASE N GOUT Y SLEEP DISORDER Y ALZHEIMER'S DISEASE N Brain Problems N DEMENTIA N HERPES N SEIZURES/EPILEPSY N HEADACHES/MIGRAINES N VASCULAR DISEASE N PACEMAKER N Blood Disorder N DIZZINESS N HEART DISEASE/HEART PROBLEMS Y KIDNEY DISEASE Y MULTIPLE SCLEROSIS N CANCER: SPECIFY N CARDIAC ARRHYTHMIA N ATRIAL FIBRILLATION N Gall Stones N PULMONARY EMBOLISM N AUTOIMMUNE DISEASE N Immunizations Vaccine Type Date Status Note Provider Nam e and Address Organization Details Recorded Time Tdap 8 completed Pam Carballo APRN [address], [address], [place], [address], [employer] 05/11/2024 13:40:55 Tdap 4 completed Not Available [facility] 12/13/2023 22:55:49 Influenza, split virus, quadrivalent, PF 2 completed Not Available [facility] 12/13/2023 22:55:49 Influenza, split virus, quadrivalent, PF 9 completed Not Available [facility] 12/13/2023 22:55:49 Influenza, split virus, quadrivalent, PF 9 completed Pam Carballo APRN [address] [facility], [address], [place], [address], [employer] 05/11/2024 13:40:55 DT (pediatric) 4 completed Not Available [facility] 12/13/2023 22:55:49 pneumococcal polysaccharide PPV23 8 completed Pam Carballo APRN [address] [facility], [address], [place], [address], [employer] 05/11/2024 13:40:55 Past Encounters Encounter ID Performer Location Encounter Start Date Encounter Closed Date Diagnosis/Indication Diagnosis SNOMED-CT Code Diagnosis ICD10 Code Diagnosis Note [id number] DIANNE Sandhu S_G Internal Med [place] [address] [facility], [address] [place] [address] 02/17/2021 00:00:00 02/17/2021 16:16:08 [id number] Miguel Mota DPM [facility] [place] [address] [facility] [place] [address] 02/21/2021 00:00:00 02/21/2021 12:52:05 [id number] Miguel Mota DPM [facility] [place] [address] [address] 03/01/2021 00:00:00 03/01/2021 11:38:50 [id number] Miguel Mota DPM [facility] [place] [address] [place] [address] 03/09/2021 00:00:00 03/09/2021 13:40:00 [id number] Miguel Mota DPM [facility] [place] [address] [address] 04/07/2021 00:00:00 04/07/2021 10:27:49 [id number] Miguel Mota DPM [facility] [place] [address] [place] [address] 04/27/2021 00:00:00 04/27/2021 14:49:24 [id number] Miguel Mota DPM [facility] [place] [address] [place] [address] 05/08/2021 00:00:00 05/24/2021 15:26:56 [id number] MD MOHINI Ye_[facility]G Internal Med [facility] [address] [address] 05/23/2021 00:00:00 05/23/2021 19:46:33 [id number] MD MOHINI Ye[facility] Internal Med [facility] [address] [address] 06/26/2021 00:00:00 06/26/2021 19:55:08 [id number] MD MOHINI Ye[facility] Internal Med [facility] [address] [address] 09/04/2021 00:00:00 09/04/2021 17:11:00 [id number] Miguel Mota DPM [facility] [place] [address] [place] [address] 10/12/2021 00:00:00 10/12/2021 09:29:46 [id number] Miguel Mota DPM [facility] [place] [address] [address] 10/23/2021 00:00:00 10/23/2021 09:14:52 [id number] Miguel Mota DPM [facility] [place] [address] [address] 11/09/2021 00:00:00 11/09/2021 15:36:31 [id number] Miguel Mota DPM [facility] [place] [address] [place] [address] 01/22/2022 00:00:00 01/22/2022 09:51:07 [id number] Bouchra dooley MD [facility] Internal [facility] [address] [address] 01/26/2022 00:00:00 01/26/2022 12:16:46 [id number] Miguel Mota DPM [facility] [place] [address] [place] [address] 02/06/2022 00:00:00 02/06/2022 09:26:39 [id number] Miguel Mota DPM _ATHENA_M IGRATION_ DEFAULT_1 _1 , 02/19/2022 00:00:00 02/19/2022 15:20:18 [id number] Bouchra dooley MD [facility] Internal [facility] [place] [address] [address] 05/01/2022 00:00:00 05/01/2022 14:03:28 [id number] MD JUAN YeS[facility] Internal Med [facility] [address] [place] [address], [address] [address] 06/04/2022 00:00:00 06/04/2022 13:41:00 [id number] MD JUAN YeS[facility] Internal Med [facility] [address] [place] [address] 1 09/03/2022 00:00:00 09/03/2022 14:01:50 [id number] Bouchra dooley MD S_[facility] Internal Med [facility] [address] [place] [address] 1 11/27/2022 00:00:00 11/27/2022 15:52:55 [id number] MD MOHINI [place] [address] 11/27/2022 00:00:00 11/27/2022 16:55:30 [id number] Refugio Gifford MD [facility] [place] [address] 12/04/2022 00:00:00 12/04/2022 10:26:20 [id number] Bouchra dooley MD [facility] Internal Med [address] [address] 12/11/2022 00:00:00 12/11/2022 13:21:02 [id number] Bouchra dooley MD S[facility] Internal Med [facility] [address] [place] [address] 02/04/2023 09:46:00 02/04/2023 10:32:17 CT of chest abnormal [id number] 8558855 R93.89 following pulm- Dr. Best upcoming repeat CT and follow up appt Asthma 503503848 J45.90 9 follows pulm as aboveon albuterol prn Atypical chest pain 1025 95869 R07.89 did see cardiology this morning- Dr. Olvera increased his coreg Lumbar radiculopathy 128 012980 M54.16 s/p MRIhas been referred to Neurosurge ry- Dr. Villatoro Diabetes mellitus 039984 09 E11.9 on trulicity, jardiance, he is aware of side effects, risks, benefits he denies any personal or family hx of MEN II, MTC or pancreatit ishe know to call if any severe n/v or abdominal pain, any UTI or groin infection sxhe follows podiatry for DM foot care- Dr. Lundy eye exam due 03/2022- has been referred to [facility] Hyperlipidemia 30232041 E78.5 on atorvastat in Essential hypertension 76321857 I10 on lisinopril Vitamin D deficiency 347 93775 E55.9 on OTC supplement Mood swings 05562622 R45 .86 on lexapro, bupropion, he is aware of side effects, risks, benefits call office if any change in mood or behavior he declines psychiatry referral today Chronic ob structive pulmonary disease 12966274 J44.9 on proair prn, following pulm as above Sleep rela justin hypoxemia 1958551513 09578 G47.36 sleep study 02/2019- no apnea but hypoxia, follows pulm as above Diabetic p eripheral neuropathy 194801119 E11.40 on gabapentin Chronic ki dney disease 478109389 N18.9 follows nephrology - Dr. Goff Coronary atherosclerosis 478591751 I25.10 s/p stent, follows cardiology - he declines us to schedule appt for him, he states he will call History of bariatric surgical procedure 416752396 Z98.84 History of sigmoid colectomy 784137406 Z90.49 Gout 16471768 M10.9 on allopurino l from Dr. Denver Wilkerson ne level below reference range 409809092 R79.89 on testostero ne from [facility] Screening for malignant neoplasm of prostate 894404569 Z12.5 [id number] Refugio Gifford MD [facility] Pulmonolo gy [address], [facility] [address] [place] [address] 02/11/2023 10:25:55 02/12/2023 08:30:35 Bronchiectasis 23772839 J47.9 Mild chron ic obstructive pulmonary disease 547832271 J44.9 Pneumonia 058069790 J18. 9 [id number] Bouchra dooley MD S_G Internal Med [place] [address] [facility] [address] [place] [address] 07/22/2023 10:59:18 07/22/2023 11:34:43 CT of chest abnormal 5994476097 0328145 R93.89 following pulm- Dr. Gamez ed him to reschedule the appointmen t he canceled, he states he will once he gets some bills paid off Asthma 995431603 J45.90 9 follows pulm as aboveon albuterol prn Lumbar radiculopathy 128 473229 M54.16 s/p MRIhas been referred to Neurosurge ry- Dr. Villatoro Diabetes mellitus 953842 09 E11.9 on trulicity, jardiance, he is aware of side effects, risks, benefits he denies any personal or family hx of MEN II, MTC or pancreatit ishe know to call if any severe n/v or abdominal pain, any UTI or groin infection sxhe follows podiatry for DM foot care- Dr. Lundy eye exam due 03/2022- has been referred to [facility] Hyperlipidemia 82876542 E78.5 on atorvastat in Essential hypertension 24125490 I10 on lisinopril Vitamin D deficiency 347 56925 E55.9 on OTC supplement Chronic ob structive pulmonary disease 55120810 J44.9 on proair prn, following pulm as above Sleep rela justin hypoxemia 8035443424 26361 G47.36 sleep study 02/2019- no apnea but hypoxia, follows pulm as above Diabetic p eripheral neuropathy 656486524 E11.40 on gabapentin Chronic ki dney disease 836230727 N18.9 follows nephrology - Dr. Goff Coronary atherosclerosis 159098515 I25.10 s/p stent, follows cardiology - he declines us to schedule appt for him, he states he will call History of bariatric surgical procedure 922527842 Z98.84 History of sigmoid colectomy 475664887 Z90.49 Gout 62047180 M10.9 on allopurino l from Dr. Goff Testostero ne level below reference range 841663486 R79.89 No longer taking testostero ne Anxiety 99160800 F41.9 restart lexapro, will switch his IR bupropion to XL, he is aware of side effects, risks, benefitsca ll office if any change in mood or behaviorCo unseling recommende d-name/num bers given to patienthe declines psychiatry referral today Erythrocytosis 527779209 D75.1 following hematology - Dr. Russo ows up again in August Bouchra dooley MD S[facility] Internal Med [place] [address] [facility], [address] [place] [address] 08/19/2023 09:33:34 08/19/2023 10:29:50 CT of chest abnormal 6284520004 6983899 R93.89 following pulm- Dr. Gamez ed him to reschedule the appointmen t he canceled, he states he will once he gets some bills paid off Asthma 047102236 J45.90 9 follows pulm as aboveon albuterol prn Lumbar radiculopathy 128 393722 M54.16 s/p MRIhas been referred to Neurosurge ry- Dr. Villatoro Diabetes mellitus 648739 09 E11.9 on trulicity, jardiance, he is aware of side effects, risks, benefits he denies any personal or family hx of MEN II, MTC or pancreatit ishe know to call if any severe n/v or abdominal pain, any UTI or groin infection sxhe follows podiatry for DM foot care- Dr. Lundy eye exam due 03/2022- has been referred to [facility] Hyperlipidemia 79148040 E78.5 on atorvastat in Essential hypertension 70679567 I10 on lisinopril Vitamin D deficiency 347 48286 E55.9 on OTC supplement Anxiety 29922406 F41.9 on lexapro, bupropion to XL, he is aware of side effects, risks, benefitsca ll office if any change in mood or behaviorCo unseling recommende d-name/num bers given to patienthe declines psychiatry referral today Chronic ob structive pulmonary disease 09654308 J44.9 on proair prn, following pulm as above Sleep rela justin hypoxemia 4270213943 04668 G47.36 sleep study 02/2019- no apnea but hypoxia, follows pulm as above Diabetic p eripheral neuropathy 607080501 E11.40 on gabapentin Chronic ki dney disease 438982590 N18.9 follows nephrology - Dr. Goff Coronary atherosclerosis 678558868 I25.10 s/p stent, follows cardiology - he declines us to schedule appt for him, he states he will call History of bariatric surgical procedure 893194430 Z98.84 History of sigmoid colectomy 028038912 Z90.49 Gout 02167626 M10.9 on allopurino l from Dr. Goff Testostergetachew ne level below reference range 528444069 R79.89 No longer taking testostero ne Erythrocytosis 987059350 D75.1 following hematology - Dr. Russo ows up again in August Open wound of left lower leg 1350163872 3081354 S81.802A dressed wound today with TAB, nonstick gauze and wrap; tetanus was updated yesterday in ERrecommen d he wash with gentle soap twice a daychange dressing twice a day- can apply TAB and nonstick dressingst art keflexstay off work this week (he climbs a lot of stairs and has a physical job)RTC 1 week for suture/sta ple removalcal l if any s/s infectionE R precaution s [id number] Bouchra dooley MD [facility] Internal Med [facility] [address] [facility], [address] [place] [address] 08/26/2023 10:32:34 08/26/2023 11:07:27 CT of chest abnormal 0295838031 8864231 R93.89 following pulm- Dr. Gamez ed him to reschedule the appointmen t he canceled, he states he will once he gets some bills paid off Asthma 090198394 J45.90 9 follows pulm as aboveon albuterol prn Lumbar radiculopathy 128 996531 M54.16 s/p MRIhas been referred to Neurosurge ry- Dr. Villatoro Diabetes mellitus 713948 09 E11.9 on trulicity, jardiance, he is aware of side effects, risks, benefits he denies any personal or family hx of MEN II, MTC or pancreatit ishe know to call if any severe n/v or abdominal pain, any UTI or groin infection sxhe follows podiatry for DM foot care- Dr. Lundy eye exam due 03/2022- has been referred to [facility] Hyperlipidemia 04460888 E78.5 on atorvastat in Essential hypertension 89735512 I10 on lisinopril Vitamin D deficiency 347 59169 E55.9 on OTC supplement Anxiety 98691061 F41.9 on lexapro, bupropion to XL, he is aware of side effects, risks, benefitsca ll office if any change in mood or behaviorCo unseling recommende d-name/num bers given to patienthe declines psychiatry referral today Chronic ob structive pulmonary disease 32218065 J44.9 on proair prn, following pulm as above Sleep rela justin hypoxemia 5561538939 05470 G47.36 sleep study 02/2019- no apnea but hypoxia, follows pulm as above Diabetic p eripheral neuropathy 108511789 E11.40 on gabapentin Chronic ki dney disease 930446148 N18.9 follows nephrology - Dr. Goff Coronary atherosclerosis 772929349 I25.10 s/p stent, follows cardiology - he declines us to schedule appt for him, he states he will call History of bariatric surgical procedure 470786476 Z98.84 History of sigmoid colectomy 142085202 Z90.49 Gout 14752111 M10.9 on allopurino l from Dr. Goff Testostero ne level below reference range 160263568 R79.89 No longer taking testostero ne Erythrocytosis 706502842 D75.1 following hematology - Dr. Russo ows up again in August Open wound of left lower leg 3205214881 2985329 S81.802A dressed wound today with TAB, nonstick gauze and wrap; tetanus was already updatedrec ommend he wash with gentle soap twice a daychange dressing twice a day- can apply TAB and nonstick dressing stay off work x 2 weeks (he climbs a lot of stairs and has a physical job)get appt with wound care call if any s/s infectionE R precaution s Epidermoid cyst of skin 075103663 L72.0 get appt with per his request [id number] Ravindra mcgarry MD [facility] General Surgery [address] [place] [address] 08/29/2023 10:25:21 08/29/2023 13:09:37 Epidermoid cyst of skin 791227358 L72.0 post neck Open wound of right lower leg 4142429398 6713618 S81.801A [id number] Bouchra dooley MD [facility] Internal Med [place] [address] [place] [address] 09/09/2023 14:58:07 09/09/2023 15:22:55 CT of chest abnormal 7594967997 6965759 R93.89 following pulm- Dr. Gamez ed him to reschedule the appointmen t he canceled, he states he will once he gets some bills paid off Asthma 171544075 J45.90 9 follows pulm as aboveon albuterol prn Lumbar radiculopathy 128 404790 M54.16 s/p MRIhas been referred to Neurosurge ry- Dr. Villatoro Diabetes mellitus 972393 09 E11.9 on trulicity, jardiance, he is aware of side effects, risks, benefits he denies any personal or family hx of MEN II, MTC or pancreatit ishe know to call if any severe n/v or abdominal pain, any UTI or groin infection sxhe follows podiatry for DM foot care- Dr. Lundy eye exam due 03/2022- has been referred to [facility] Hyperlipidemia 21251224 E78.5 on atorvastat in Essential hypertension 16647212 I10 on lisinopril Vitamin D deficiency 347 67453 E55.9 on OTC supplement Anxiety 60632458 F41.9 on lexapro, bupropion to XL, he is aware of side effects, risks, benefitsca ll office if any change in mood or behaviorCo unseling recommende d-name/num bers given to patienthe declines psychiatry referral today Chronic ob structive pulmonary disease 97704998 J44.9 on proair prn, following pulm as above Sleep rela justin hypoxemia 6617004790 15294 G47.36 sleep study 02/2019- no apnea but hypoxia, follows pulm as above Diabetic p eripheral neuropathy 469362133 E11.40 on gabapentin Chronic ki dney disease 604520033 N18.9 follows nephrology - Dr. Goff Coronary atherosclerosis 783994896 I25.10 s/p stent, follows cardiology - he declines us to schedule appt for him, he states he will call History of bariatric surgical procedure 364848978 Z98.84 History of sigmoid colectomy 495674026 Z90.49 Gout 36187318 M10.9 on allopurino l from Dr. Goff Testostero ne level below reference range 200558798 R79.89 No longer taking testostero ne Erythrocytosis 447056969 D75.1 following hematology - Dr. Russo ows up again in August Open wound of left lower leg 3767803946 2169491 S81.802A dressed wound today with TAB, nonstick gauze and wrap; tetanus was already updatedrec ommend he wash with gentle soap twice a daychange dressing twice a day- can apply TAB and nonstick dressing following general surgery for wound care- next appt 09/17, they are planning to debride he remains off work until 09/24 per the [facility] paperwork I filled out, if he has debridemen t with [facility], they can keep him off for longer if they feel appropriat e call if any s/s infectionE R precaution s Epidermoid cyst of skin 287143447 L72.0 following [facility]- Dr. Jose mcgarry- has excision scheduled for 09/17 Viral syndrome 241572604 B34.9 supportive care/OTC cold medscheck home covid test and call us back with result (too late in the day to get it ordered at [facility]) [id number] Ravindra mcgarry MD [facility] General Surgery [address] [facility], [address] [place] [address] 09/17/2023 09:57:44 09/17/2023 15:22:51 Epidermoid cyst of skin 190730206 L72.0 post neck [id number] Ravindra mcgarry MD [facility] General Surgery [address] [address] 09/24/2023 10:12:25 09/24/2023 14:23:30 Epidermoid cyst of skin 332052256 L72.0 post neck [id number] Ravindra mcgarry MD [facility] General Surgery [address] [address] 12/19/2023 11:55:05 12/19/2023 17:12:37 Perianal abscess 63935131 K61.0 [id number] Ravindra mcgarry MD [facility] General Surgery [address] [address] 01/09/2024 10:12:49 01/27/2024 15:02:51 [id number] Ravindra mcgarry MD [facility] General Surgery [address] [address] 01/23/2024 10:00:42 01/23/2024 17:13:44 [id number] Ravindra mcgarry MD [facility] General [facility] [address] [facility] [address] [address] 02/06/2024 10:15:19 02/06/2024 16:40:22 [id number] Bouchra dooley MD [facility] Internal Med [facility] [address] [address] 02/11/2024 14:06:29 02/11/2024 14:48:27 Diabetes mellitus 04170004 E11.9 Hyperlipidemia 08783562 E78.5 Anxiety 74473056 F41.9 Mild chron ic obstructive pulmonary disease 824712342 J44.9 Renewal of prescription 808244406 Z76.0 Vitamin D deficiency 347 59061 E55.9 [id number] Bouchra dooley MD [facility] Internal Med [facility] [address] [address] 08/10/2024 08:47:04 08/10/2024 09:28:18 Screening for malignant neoplasm of colon 822356720 Z12.11 Diabetes mellitus 073246 09 E11.9 Hepatitis C screening 41 8371161 Z11.59 Pain of ri ght shoulder region 9120961979 M25.511 Insomnia 692720475 G47.0 0 [id number] Arline Live NP [facility] [address] [place] [address] 08/31/2024 09:58:26 08/31/2024 10:42:59 Pain of right shoulder joint 7543177217 0395337 M25.087 [id number] Brandon Mosley MD [facility] [place] [place] [address] [place] [address] 09/09/2024 14:21:52 09/09/2024 14:47:16 Pain of right shoulder region 4143129817 M25.400 [id number] Miguel Mota DPM [facility] [place] [address] [place] [address] 09/14/2024 10:43:09 09/15/2024 13:47:58 Diabetes mellitus 03224135 E11.9 continue diabetic control per PCP recommenda tionscheck feet daily for wounds infection daily if present seek medical attention immediatel yRecommend supportive athletic shoe gearFollow -up in 1 year [id number] Brandon Mosley MD [facility] [place] [address] [place] [address] 09/16/2024 09:55:53 09/16/2024 10:27:56 Pain of right shoulder joint 3713014930 1206353 M25.640 [id number] Roxy Thibodeaux MD [facility] General Surgery [address] [place] [address] 09/30/2024 11:55:58 09/30/2024 13:44:23 Screening for malignant neoplasm of colon 237412354 Z12.11 [id number] Brandon Mosley MD [facility] [place] [address] [place] [address] 10/07/2024 13:39:07 10/07/2024 14:06:37 Pain of right shoulder region 1985293510 M25.511 Pain of ri ght shoulder joint 9408425067 5657163 M25.015 [id number] Brandon Mosley MD [facility] [place] [address] [place] [address] 11/04/2024 09:25:44 11/04/2024 10:22:37 Pain of right shoulder joint 2493658975 4734229 M25.228 [id number] Brandon Mosley MD [facility] [place] [place] [address] [place] [address] 12/23/2024 09:14:41 12/23/2024 09:50:48 Pain of right shoulder joint 4167649997 5008686 M25.853 [id number] Bouchra dooley MD [facility] Internal Med [facility] [address] [facility], [facility] [address] [place] [address] 02/01/2025 08:47:01 02/01/2025 09:36:34 Diabetes mellitus 07906159 E11.9 Insomnia 825214701 G47.0 0 Renewal of prescription 244280976 Z76.0 Pain of ri ght shoulder joint 0510599400 9238979 M25.511 Chronic ki dney disease 081530337 N18.9 [id number] Brandon Mosley MD [facility] [place] [address] [place] [place] [address] 03/24/2025 09:59:39 03/24/2025 10:55:36 Pain of right shoulder region 0027725629 M25.511 Health Concerns Section Related Observation LastModified by Organization Detai ls LastModified Time None Recorded Concern Status LastModified by Organization Details LastModified Time None Recorded Advance Directives Directive N: Payers Encounter Date Sequence Insurance Name Policy Number Policy Martinez Covered Member ID Martinez Member ID Guarantor Name 10/07/2024 1 MICHAEL (PPO) [id number] Luis Dnaiel D [place] [id number] Luis Daniel D [place] 11/04/2024 1 [employer] [id number] Luis Daniel D [place] [id number] Luis Daniel D [place] 12/23/2024 1 [place] [id number] Luis Daniel D [place] [id number] Luis Daniel D [place] 02/01/2025 1 [place] [id number] Luis Daniel D [place] [id number] Luis Daniel D [place] 03/24/2025 1 [place] [id number] Luis Daniel D [place] [id number] Luis Daniel D [place] Notes Date Note Type Note Provider Name and Address Organization Details Recorded Time 02/01/2025 text/html Luis Daniel presents today for 6 month follow up. He states that he is still having issues with his right shoulder but his orthopedic states that he is on track for healing. He denies chest pain, states that he believes it was stress/anxiety. 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 08/10/2024Luis Daniel presents today for 6 month follow up. Patient states that he was recently in the ED for chest pain. He states that it is right shoulder pain. He states that he injured his right shoulder moving out of his house. He is asking for a work release so that he can return to work. 20555Vdeqoso presents today to establish care. He states that he is seeing a counselor to help with drinking when he gets angry. He states that he recently had an abscess on his buttock removed. He states that his chronic kidney disease is being watched closely by nephrology. He also needs his medications refilled. Pam Carballo, [employer] [address] [facility], [facility] [address], [place], [address], [facility] [employer] 02/01/2025 09:35:30
== END 2025-05-02 08:44 | disposition home or self-care (01) ==
PROVIDERS: Visit Provider Nurse Practitioner Family
DX: M19.011 Primary osteoarthritis, right shoulder (principal); Z98.890 Other specified postprocedural states
CPT/HCPCS: 73221